=== PATIENT | male | born 1955 | race Caucasian/White ===

== ENCOUNTER → 2023-05-05 | Emergency (ER) | payer BC, OTHER ==
[~2023-05-05] MED LIST: FAMOTIDINE 20 MG/2 ML VIAL IV ONE; NA CHLORIDE 0.9% 1,000 ML ONE
--- OUTSIDE RECORDS SUMMARY | 2023-05-05 07:10 | XMS REPORT | Continuity of Care Document ---
Author Name Unknown Address [address] [facility] [address]. [address] [place] [address] [facility] Address [address] [facility]. [address] [place] [address] Care Team Providers Care Rural Service Engineer Name Role Phone YAZAN HILL Primary Care Physician UnavailBORIS Munguia Attending Clinician Unavailab GALE Santiago Attending Clinician UnaGALE Maher Attending Clinician Unav JAMES Casper Attending Clinician Unavailable JAMES QUIROS Attending Clinician Unavailable SRINIVASAN LOPEZ Attending Clinician UnavailRADHA Martinez Attending Clinician Radha Seals MD Attending Clinician YAZAN HILL Attending Clinician Unavailable Nima Villalobos RN Attending Clinician Unavail Yazan Rincon MD Attending Clinician [phone] SUMMER PABON Attending Clinician Unavail able Joann Hamilton DO Attending Clinician [phone] Mago Kruse MD Attending Clinician [phone] Summer Pabon MD Attending Clinician [phone] Doctor Unassigned, [place] Attending Clinician U KIRSTEN Elise Attending Clinician UnavailKirsten Espinal Attending Clinician [phone] Unknown, Attending Attending Clinician UnavailDAVE King Attending Clinician Unavailable Dave Tapia PA-C Attending Clinician [phone] DOV FATIMAHTOBY Attending Clinician Unavailable Brooks CAN WASHER, Reenu Attending Clinician [phone] Naveed CARVAJAL, Rena Attending Clinician [phone] RENA LUCIO Attending Clinician Unavailable Team, [facility] Maintenance Attending Clinicia n Unavailable Keara RN, Nadia Attending Clinician Unavailable Only, Ang Db Test Attending Clinician Unavailxavier Greer CAN WASHER, Yany Attending Clinician [phone] YANY GREER Attending Clinician Unavailable Omaghomi CAN WASHER, Omayemi Attending Clinician [phone] OMAGHOMI, OMAYEMI Attending Clinician Unavailxavier Cordova RN, Scar Ya Attending Clinician Unavaila ble Lab, Ang - Db Attending Clinician Unavailable Vaccine, Ang Db Uc Attending Clinician Unavailab cher Maradiaga MD, Boris Taylor Attending Clinician [phone] Only, Adc Test Attending Clinician Unavailable Pob, Adc Lab Main Attending Clinician UnavailJOHN Collazo Attending Clinician Unavailable Lab, Adc Fam Pob I Attending Clinician Unavailab le Provider, [facility] Attending Clinician Un available Aneumm SOUZA, Nichole Attending Clinician [phone] NICHOLE VÁSQUEZ Attending Clinician Unavailable BORIS MARADIAGA Admitting Clinician Unavailab SUMMER Tran Admitting Clinician Unavail Summer Oliveira MD Admitting Clinician [phone] Boris Maradiaga MD Admitting Clinician [phone] Payers Payer Name Policy Type Policy Number Effective Date Expirati on Date Source [facility] - OUT OF STATE [id number] 2015 00:00:00 MEDICARE OBS/INPT PART A ONLY [id number] 2019 00:00:00 2023 00:00:00 Problems Condition Name Condition Details Condition Category Status Onset Date Resolution Date Last Treatment Date Treating Clinician Comments Source Atrial fibrillati on with RVR Atrial fibrillati on with RVR Disease [facility] Hyperlipid emia with target LDL less than 100 Hyperlipid emia with target LDL less than 100 Disease Active 01-02 00:00: 00 [facility] Allergies, Adverse Reactions, Alerts Allergy Name Allergy Type Status Severity Reaction(s) Onset Date Inactive Date Treating Clinician Comments Source NO KNOWN ALLERGIE S Drug Class Active [facility] Social History Social Habit Start Date Stop Date Quantity Comments Source History SDOH Alcohol Frequency [facility] History SDOH Alcohol Std Drinks [facility] History SDOH Alcohol Binge [facility] Sexual orientation U [facility] Alcohol intake 2023-04-29 00:00:00 2023-04-29 00:00:00 Current drinker of alcohol (finding) [facility] History of Social function 2023-03-31 00:00:00 2023-03-31 00:00:00 [facility] Exposure to SARS-CoV-2 (event) 2022-08-08 00:00:00 2022-08-18 17:55:00 Not sure [facility] Cigarettes smoked current (pack per day) - Reported 2021-10-13 00:00:00 2021-10-13 00:00:00 [facility] Cigarette pack-years 2021-10-13 00:00:00 2021-10-13 00:00:00 [facility] Tobacco use and exposure 2021-10-13 00:00:00 2021-10-13 00:00:00 User of smokeless tobacco [facility] History of tobacco use 2021-10-06 00:00:00 Cigarette Smoker [facility] Alcohol Comment 2016-08-07 00:00:00 2016-08-07 00:00:00 occasionally [facility] Sex Assigned At 1955 00:00:00 1955 00:00:00 [facility] Smoking Status Start Date Stop Date Source Ex-smoker 2021-10-13 00:00:00 2021-10-13 00:00:00 U [facility] Current every day smoker 2015-08-01 00:00:00 [facility] Medications Ordered Medication Name Filled Medication Name Start Date Stop Date Current Medication? Ordering Clinician Indication Dosage Frequency Signature (SIG) Comments Components Source metoprolol tartrate 50 mg tablet - 17:29: 42 Yes 50mg Take 1 tablet by mouth every 8 (eight) hours as needed (HR over 90). [facility] metoprolol tartrate 50 mg tablet 2023-0 04-30 17:29: 42 Yes 50mg Take 1 tablet by mouth every 8 (eight) hours as needed (HR over 90). [facility] apixaban 5 mg tablet 2023-0 04-30 00:00: 00 Yes 1358 5mg Take 1 tablet by mouth in the morning and 1 tablet in the evening. Indication s: atrial fibrillati on [facility] metoprolol tartrate 25 mg tablet 2023-0 04-30 00:00: 00 Yes [id number] 25mg Take 1 tablet by mouth in the morning and 1 tablet in the evening. [facility] apixaban 5 mg tablet 2023-0 04-30 00:00: 00 Yes 1358 5mg Take 1 tablet by mouth in the morning and 1 tablet in the evening. Indication s: atrial fibrillati on [facility] metoprolol tartrate 25 mg tablet 2023-0 04-30 00:00: 00 Yes [id number] 25mg Take 1 tablet by mouth in the morning and 1 tablet in the evening. [facility] metoprolol tartrate 50 mg tablet 2023-0 18 15:24: 25 Yes 50mg Take 1 tablet by mouth every 8 (eight) hours as needed (HR over 90). [facility] levalbutero l 45 mcg/actuati on inhaler 2023-0 18 15:24: 25 Yes 1{puff} Inhale 1-2 Puffs every 4 (four) hours as needed for Wheezing. [facility] metoprolol tartrate 50 mg tablet 2023-0 18 15:24: 25 Yes 50mg Take 1 tablet by mouth every 8 (eight) hours as needed (HR over 90). [facility] levalbutero l 45 mcg/actuati on inhaler 2023-0 18 15:24: 25 Yes 1{puff} Inhale 1-2 Puffs every 4 (four) hours as needed for Wheezing. [facility] levalbutero l 45 mcg/actuati on inhaler 04-29 15:24: 25 Yes 1{puff} Inhale 1-2 Puffs every 4 (four) hours as needed for Wheezing. [facility] levalbutero l 45 mcg/actuati on inhaler 04-29 15:24: 25 Yes 1{puff} Inhale 1-2 Puffs every 4 (four) hours as needed for Wheezing. [facility] levalbutero l 45 mcg/actuati on inhaler 04-29 09:14: 17 Yes 1{puff} Inhale 1-2 Puffs every 4 (four) hours as needed for Wheezing. [facility] levalbutero l 45 mcg/actuati on inhaler 04-29 09:14: 17 Yes 1{puff} Inhale 1-2 Puffs every 4 (four) hours as needed for Wheezing. [facility] metoprolol tartrate 50 mg tablet 04-29 09:12: 57 Yes 50mg Take 1 tablet by mouth every 8 (eight) hours as needed (HR over 90). [facility] metoprolol tartrate 50 mg tablet 04-29 09:12: 57 Yes 50mg Take 1 tablet by mouth every 8 (eight) hours as needed (HR over 90). [facility] metoprolol tartrate 25 mg tablet 04-29 00:00: 00 Yes [id number] 25mg Take 1 tablet by mouth in the morning and 1 tablet in the evening. [facility] metoprolol tartrate 25 mg tablet 04-29 00:00: 00 Yes [id number] 25mg Take 1 tablet by mouth in the morning and 1 tablet in the evening. [facility] metoprolol tartrate 25 mg tablet 04-29 00:00: 00 04-30 00:00 :00 No [id number] 25mg Take 1 tablet by mouth in the morning and 1 tablet in the evening. [facility] metoprolol tartrate (LOPRESSOR) tablet 50 mg 04-17 04:00: 00 Yes 50mg 50 mg, Oral, Q8H, First dose (after last modificati on) on Wed04/16/23 at 2200, Until Discontinu ed, Routine [facility] atorvastati n (LIPITOR) tablet 10 mg 04-17 03:00: 00 Yes 10mg 10 mg, Oral, QHS, First dose on Wed04/16/23 at 2100, Until Discontinu ed, Routine [facility] apixaban 5 mg tablet 04-17 00:00: 00 Yes 1358 5mg Take 1 tablet by mouth in the morning and 1 tablet in the evening. Indication s: atrial fibrillati on [facility] apixaban 5 mg tablet 04-17 00:00: 00 Yes 1358 5mg Take 1 tablet by mouth in the morning and 1 tablet in the evening. Indication s: atrial fibrillati on [facility] apixaban 5 mg tablet 04-17 00:00: 00 Yes 1358 5mg Take 1 tablet by mouth in the morning and 1 tablet in the evening. Indication s: atrial fibrillati on [facility] apixaban 5 mg tablet 04-17 00:00: 00 Yes 1358 5mg Take 1 tablet by mouth in the morning and 1 tablet in the evening. Indication s: atrial fibrillati on [facility] dextrometho rphan-guaif enesin 10-100 mg/5 mL solution 04-17 00:00: 00 Yes [id number] 5mL Take 5 mL by mouth every 6 (six) hours as needed for Cough. [facility] apixaban 5 mg tablet 04-17 00:00: 00 Yes 1358 5mg Take 1 tablet by mouth in the morning and 1 tablet in the evening. Indication s: atrial fibrillati on [facility] dextrometho rphan-guaif enesin 10-100 mg/5 mL solution 04-17 00:00: 00 Yes [id number] 5mL Take 5 mL by mouth every 6 (six) hours as needed for Cough. [facility] apixaban 5 mg tablet 04-17 00:00: 00 Yes 1358 5mg Take 1 tablet by mouth in the morning and 1 tablet in the evening. Indication s: atrial fibrillati on [facility] dextrometho rphan-guf enesin 10-100 mg/5 mL solution - 00:00: 00 Yes [id number] 5mL Take 5 mL by mouth every 6 (six) hours as needed for Cough. [facility] apixaban 5 mg tablet 04-17 00:00: 00 Yes 1358 5mg Take 1 tablet by mouth in the morning and 1 tablet in the evening. Indication s: atrial fibrillati on [facility] dextrometho rphan-guf enesin 10-100 mg/5 mL solution 04-17 00:00: 00 Yes [id number] 5mL Take 5 mL by mouth every 6 (six) hours as needed for Cough. [facility] apixaban 5 mg tablet 04-17 00:00: 00 Yes 1358 5mg Take 1 tablet by mouth in the morning and 1 tablet in the evening. Indication s: atrial fibrillati on [facility] metoprolol tartrate 25 mg tablet 04-17 00:00: 00 10-14 04:59 :00 Yes [id number] 25mg Take 1 tablet by mouth in the morning and 1 tablet in the evening. Do all this for 180 days. [facility] metoprolol tartrate 25 mg tablet 04-17 00:00: 00 10-14 04:59 :00 Yes [id number] 25mg Take 1 tablet by mouth in the morning and 1 tablet in the evening. Do all this for 180 days. [facility] metoprolol tartrate 25 mg tablet 04-17 00:00: 00 10-14 04:59 :00 Yes [id number] 25mg Take 1 tablet by mouth in the morning and 1 tablet in the evening. Do all this for 180 days. [facility] metoprolol tartrate 25 mg tablet 04-17 00:00: 10-14 04:59 :00 Yes [id number] 25mg Take 1 tablet by mouth in the morning and 1 tablet in the evening. Do all this for 180 days. [facility] metoprolol tartrate 25 mg tablet 04-17 00:00: 00 10-14 04:59 :00 Yes [id number] 25mg Take 1 tablet by mouth in the morning and 1 tablet in the evening. Do all this for 180 days. [facility] metoprolol tartrate 25 mg tablet 04-17 00:00: 00 10-14 04:59 :00 Yes [id number] 25mg Take 1 tablet by mouth in the morning and 1 tablet in the evening. Do all this for 180 days. [facility] apixaban 5 mg tablet 04-17 00:00: 00 04-30 00:00 :00 No 1358 5mg Take 1 tablet by mouth in the morning and 1 tablet in the evening. Indication s: atrial fibrillati on [facility] dextrometho dimitry-randallf enesin 10-100 mg/5 mL solution 04-17 00:00: 00 04-29 00:00 :00 No [id number] 5mL Take 5 mL by mouth every 6 (six) hours as needed for Cough. [facility] metoprolol tartrate 50 mg tablet 04-17 00:00: 00 04-29 00:00 :00 No 50mg Take 1 tablet by mouth every 8 (eight) hours as needed. [facility] metoprolol tartrate 25 mg tablet 04-17 00:00: 00 04-29 00:00 :00 No [id number] 25mg Take 1 tablet by mouth in the morning and 1 tablet in the evening. Do all this for 180 days. [facility] metoprolol tartrate 25 mg tablet 04-17 00:00: 00 04-29 00:00 :00 No [id number] 25mg Take 1 tablet by mouth in the morning and 1 tablet in the evening. Do all this for 180 days. [facility] david mckeon enesin 10-100 mg/5 mL solution 04-17 00:00: 00 04-29 00:00 :00 No [id number] 5mL Take 5 mL by mouth every 6 (six) hours as needed for Cough. [facility] metoprolol tartrate 50 mg tablet 04-17 00:00: 00 04-29 00:00 :00 No 50mg Take 1 tablet by mouth every 8 (eight) hours as needed. [facility] metoprolol tartrate 50 mg tablet 04-17 00:00: 00 04-17 00:00 :00 No [id number] 50mg Take 1 tablet by mouth every 8 (eight) hours. [facility] metoprolol tartrate 50 mg tablet 04-17 00:00: 04-17 00:00 :00 No [id number] 25mg Take 0.5 tablets by mouth in the morning and 0.5 tablets in the evening. [facility] apixaban (ELIQUIS) tablet 5 mg 04-16 20:30: 00 Yes 5mg 5 mg, Oral, BID, First dose on Wed04/16/23 at 1430, Until Discontinu ed, Routine
Indicatio ns: Non-Valvul ar Atrial Fibrillati on [facility] metoprolol (LOPRESSOR) injection 5 mg 04-16 19:00: 00 04-16 18:16 :00 No 5mg 5 mg, Intravenou s, ONCE, 1 dose, On Wed04/16/23 at 1300, Routine [facility] sulfur hexafluorid e microsphr (LUMASON) injection 5 mL 04-16 18:15: 00 04-16 18:15 :00 No [id number] 5mL 5 mL, Intravenou s, ONCE, 1 dose, On Wed04/16/23 at 1215, Routine
seafood team member approving Restricted medication : CARLYN SEGURA [facility] metoprolol tartrate (LOPRESSOR) tablet 25 mg 04-16 18:00: 00 04-16 21:35 :15 No 25mg 25 mg, Oral, Q8H, First dose (after last modificati on) on Wed04/16/23 at 1200, Until Discontinu ed, Routine [facility] metoprolol tartrate (LOPRESSOR) tablet 12.5 mg 04-16 17:15: 00 04-16 17:48 :17 No 12.5mg 12.5 mg, Oral, BID, First dose on Wed04/16/23 at 1115, Until Discontinu ed, Routine [facility] sennosides- docusate sodium (SENOKOT-S) 8.6-50 mg per tablet 1 tablet 04-16 15:00: 00 Yes 1{tbl} 1 tablet, Oral, DAILY, First dose on Wed04/16/23 at 0900, Until Discontinu ed, Routine [facility] levalbutero l (XOPENEX) nebulizer solution 0.63 mg 04-16 14:00: 00 Yes .63mg 0.63 mg, Inhalation , TID, First dose on Wed04/16/23 at 0800, Until Discontinu ed, Routine [facility] HEPARIN SODIUM (PORCINE) 1,000 UNIT/ML BOLUS ACS ORDER SET 04-16 11:15: 00 04-16 13:17 :00 No 4000U 4,000 Units, IV Push, ONCE, 1 dose, On Wed04/16/23 at 0515, JONATHAN [facility] heparin 25,000 Units/250 mL (Premixed Bag) in 0.45 % NS 04-16 11:01: 13 04-16 20:18 :08 No 0U/h 0-2,150 Units/hr (0-21.5 mL/hr), IV Infusion, TITRATE, Parameters in Admin. Instr., Starting on Wed04/16/23 at 0501
In itiate dosing:&nb sp; & nbsp;&nbsp ; -Patient 83 kg or under: 850 Units/hr (Calculate d dose at 12 units/kg/h r) &n bsp; &nbs p; -Patient over 83 k,000 units/hr&n bsp;DO NOT Exceed the MAXIMUM 1,000 units/hr for initiation of heparin drip.&nbsp ; CAU TION - If LMWH given in ER, AVOID bolus and start next dose/drip 12 hrs after ER dosage.&nb sp; M ust program rate using programmab le infusion pump.&nbsp ; Smitha ck with the ordering provider first prior to any administra tion should the patient be on existing/a dditional anticoagul ant therapy. Rang e, Dosing and Testing: &nbs p;FOR [facility], [facility], AND [facility] ONLY &nbs p; - aPTT < 35: & nbsp;Bolus 5000 units, increase rate 300 units/hr&n bsp; - aPTT 35-44:&nbs p; Harjit starla 3000 units, increase rate 200 units/hr&n bsp; - aPTT 45-54:&nbs p; In crease rate 100 units/hr&n bsp; - aPTT 55-85:&nbs p; NO CHANGE&nbs p; - aPTT 86-95:&nbs p; De crease rate 100 units/hr&n bsp; - aPTT 96-120:&nb sp; H old 30 minutes, decrease rate 150 units/hr&n bsp; - aPTT > 120: Hold 60 minutes, decrease rate 200 units/hr&n bsp; Check aPTT 6 hours after initiation , then Q6H after every change, aPTT Q12H once therapeuti c levels are reached.&n bsp; &nbs p; __ &n bsp;FOR [facility] ONLY - aPTT < 40: & nbsp;Bolus 5000 units, increase rate 300 units/hr&n bsp; - aPTT 40-49:&nbs p; Harjit starla 3000 units, increase rate 200 units/hr&n bsp; - aPTT 50-59:&nbs p; In crease rate 100 units/hr&n bsp; - aPTT 60-85:&nbs p; NO CHANGE&nbs p; - aPTT 86-95:&nbs p; De crease rate 100 units/hr&n bsp; - aPTT 96-120:&nb sp; H old 30 minutes, decrease rate 150 units/hr&n bsp; - aPTT > 120: Hold 60 minutes, decrease rate 200 units/hr&n bsp; Check aPTT 6 hours after initiation , then Q6H after every change, aPTT Q12H once therapeuti c levels are reached.&n bsp; DO NOT ADJUST INITIAL BOLUS OR INITIAL INFUSION RATE.
[facility]rometho rphan-guaif enesin (ROBITUSSIN DM) 10-100 mg/5 mL solution 5 mL 04-16 07:34: 20 Yes 5mL 5 mL, Oral, Q6HPRN, Starting on Wed04/16/23 at 0134, Until Discontinu ed, Routine, Cough [facility] acetaminoph en (TYLENOL) tablet 650 mg 04-16 07:22: 44 Yes 650mg 650 mg, Oral, Q6HPRN, Starting on Wed04/16/23 at 0122, Until Discontinu ed, Routine, Pain (scale 1-3) [facility] NaCl 0.9% (NS) bolus infusion 500 mL 04-16 01:45: 00 04-16 02:25 :00 No 500mL at 999 mL/hr, 500 mL, IV Infusion, ONCE, 1 dose, On Gretchen 04/15/23 at 1945, STAT [facility] diltiazem (CARDIZEM IV) 125 mg in D5W infusion 04-16 01:36: 57 04-16 07:45 :36 No 2.5mg/h 2.5-15 mg/hr (2.5-15 mL/hr), IV Infusion, TITRATE, HR <105 and SBP >100, Starting on Wed04/15/23 at 1936
In itiate infusion at 2.5 mg/hr. Titrate by 2.5 mg/hr every 5 minutes to 15 minutes as needed to achieve and maintain goal heart rate. Maximum dose = 15 mg/hr. If goal not maintained at maximum allowed dose, contact prescriber .
[facility] diltiazem (CARDIZEM IV) injection 15 mg 04-15 21:15: 00 04-15 21:18 :00 No 15mg 15 mg, IV Push, ONCE, 1 dose, On Wed04/15/23 at 1515, STAT [facility] cefUROXime 500 mg tablet 04-13 00:00: 00 Yes [id number] 500mg Take 1 tablet by mouth in the morning and 1 tablet in the evening. [facility] cefUROXime 500 mg tablet 04-13 00:00: 00 04-17 00:00 :00 No [id number] 500mg Take 1 tablet by mouth in the morning and 1 tablet in the evening. [facility] cefUROXime 500 mg tablet 2022-04 2-20 00:00: 00 Yes [id number] 500mg Take 1 tablet by mouth in the morning and 1 tablet in the evening. [facility] cefUROXime 500 mg tablet 2022-04 2-20 00:00: 00 Yes [id number] 500mg Take 1 tablet by mouth in the morning and 1 tablet in the evening. [facility] cefUROXime 500 mg tablet 2022-04 2-20 00:00: 00 04-13 00:00 :00 No [id number] 500mg Take 1 tablet by mouth in the morning and 1 tablet in the evening. [facility] codeine-gua ifenesin 10-100 mg/5 mL oral solution 2022-04 00:00: 00 04-08 05:59 :00 Yes 10mL Take 10 mL by mouth every 6 (six) hours as needed for Cough for up to 7 days. Indication s: cough [facility] codeine-gua ifenesin 10-100 mg/5 mL oral solution 2022-04 00:00: 00 04-08 05:59 :00 Yes 10mL Take 10 mL by mouth every 6 (six) hours as needed for Cough for up to 7 days. Indication s: cough [facility] benzonatate 200 mg capsule 2022-04 00:00: 00 04-03 05:59 :00 Yes [id number] 200mg Take 1 capsule by mouth 3 (three) times daily as needed for Cough for up to 10 days. [facility] benzonatate 200 mg capsule 2022-04 00:00: 00 04-03 05:59 :00 Yes [id number] 200mg Take 1 capsule by mouth 3 (three) times daily as needed for Cough for up to 10 days. [facility] benzonatate 200 mg capsule 2022-04 00:00: 00 04-03 05:59 :00 Yes [id number] 200mg Take 1 capsule by mouth 3 (three) times daily as needed for Cough for up to 10 days. [facility] erythromyci n 5 mg/gram (0.5 %) ophthalmic ointment 7-04 00:00: 00 Yes [id number] 9102 .5[in_u s] Place 0.5 Inches in left eye 4 (four) times daily. [facility] erythromyci n 5 mg/gram (0.5 %) ophthalmic ointment 10-13 00:00: 00 Yes [id number] 9102 .5[in_u s] Place 0.5 Inches in left eye 4 (four) times daily. [facility] erythromyci n 5 mg/gram (0.5 %) ophthalmic ointment 10-13 00:00: 00 Yes [id number] 9102 .5[in_u s] Place 0.5 Inches in left eye 4 (four) times daily. [facility] erythromyci n 5 mg/gram (0.5 %) ophthalmic ointment 10-13 00:00: 00 Yes [id number] 9102 .5[in_u s] Place 0.5 Inches in left eye 4 (four) times daily. [facility] erythromyci n 5 mg/gram (0.5 %) ophthalmic ointment 10-13 00:00: 00 Yes [id number] 9102 .5[in_u s] Place 0.5 Inches in left eye 4 (four) times daily. [facility] erythromyci n 5 mg/gram (0.5 %) ophthalmic ointment 10-13 00:00: 00 Yes [id number] 9102 .5[in_u s] Place 0.5 Inches in left eye 4 (four) times daily. [facility] erythromyci n 5 mg/gram (0.5 %) ophthalmic ointment 10-13 00:00: 00 04-17 00:00 :00 No [id number] 9102 .5[in_u s] Place 0.5 Inches in left eye 4 (four) times daily. [facility] ATORVASTATI N 10 mg tablet 09-21 00:00: 00 Yes [id number] TAKE 1 TABLET BY MOUTH EVERYDAY AT BEDTIME [facility] ATORVASTATI N 10 mg tablet 09-21 00:00: 00 Yes [id number] TAKE 1 TABLET BY MOUTH EVERYDAY AT BEDTIME [facility] ATORVASTATI N 10 mg tablet 3-0 -12 00:00: 00 Yes [id number] TAKE 1 TABLET BY MOUTH EVERYDAY AT BEDTIME [facility] ATORVASTATI N 10 mg tablet 3-0 -12 00:00: 00 Yes [id number] TAKE 1 TABLET BY MOUTH EVERYDAY AT BEDTIME [facility] ATORVASTATI N 10 mg tablet 2022-0 -12 00:00: 00 Yes [id number] TAKE 1 TABLET BY MOUTH EVERYDAY AT BEDTIME [facility] ATORVASTATI N 10 mg tablet 3-0 -12 00:00: 00 Yes [id number] TAKE 1 TABLET BY MOUTH EVERYDAY AT BEDTIME [facility] ATORVASTATI N 10 mg tablet 3-0 -12 00:00: 00 Yes [id number] TAKE 1 TABLET BY MOUTH EVERYDAY AT BEDTIME [facility] ATORVASTATI N 10 mg tablet 2022-0 12 00:00: 00 Yes [id number] TAKE 1 TABLET BY MOUTH EVERYDAY AT BEDTIME [facility] ATORVASTATI N 10 mg tablet 3-0 12 00:00: 00 Yes [id number] TAKE 1 TABLET BY MOUTH EVERYDAY AT BEDTIME [facility] ATORVASTATI N 10 mg tablet 2022-0 12 00:00: 00 Yes [id number] TAKE 1 TABLET BY MOUTH EVERYDAY AT BEDTIME [facility] ATORVASTATI N 10 mg tablet 2022-0 -12 00:00: 00 Yes [id number] TAKE 1 TABLET BY MOUTH EVERYDAY AT BEDTIME [facility] ATORVASTATI N 10 mg tablet 3-0 -12 00:00: 00 Yes [id number] TAKE 1 TABLET BY MOUTH EVERYDAY AT BEDTIME [facility] ATORVASTATI N 10 mg tablet 3-0 -12 00:00: 00 Yes [id number] TAKE 1 TABLET BY MOUTH EVERYDAY AT BEDTIME [facility] ATORVASTATI N 10 mg tablet 3-0 -12 00:00: 00 Yes [id number] TAKE 1 TABLET BY MOUTH EVERYDAY AT BEDTIME [facility] ATORVASTATI N 10 mg tablet 09-21 00:00: 00 Yes [id number] TAKE 1 TABLET BY MOUTH EVERYDAY AT BEDTIME [facility] ATORVASTATI N 10 mg tablet 09-21 00:00: 00 Yes [id number] TAKE 1 TABLET BY MOUTH EVERYDAY AT BEDTIME [facility] ATORVASTATI N 10 mg tablet 09-21 00:00: 00 Yes [id number] TAKE 1 TABLET BY MOUTH EVERYDAY AT BEDTIME [facility] ATORVASTATI N 10 mg tablet 09-21 00:00: 00 Yes [id number] TAKE 1 TABLET BY MOUTH EVERYDAY AT BEDTIME [facility] amoxicillin 500 mg capsule 08-18 00:00: 00 08-29 04:59 :00 No [id number] 500mg Take 1 capsule by mouth in the morning and 1 capsule in the evening. Do all this for 10 days. [facility] levalbutero l 45 mcg/actuati on inhaler 07-02 00:00: 00 Yes [id number] 1{puff} Inhale 1-2 Puffs every 6 (six) hours as needed for Wheezing or Bronchospa sm. [facility] levalbutero l 45 mcg/actuati on inhaler 07-02 00:00: 00 Yes [id number] 1{puff} Inhale 1-2 Puffs every 6 (six) hours as needed for Wheezing or Bronchospa sm. [facility] levalbutero l 45 mcg/actuati on inhaler 07-02 00:00: 00 Yes [id number] 1{puff} Inhale 1-2 Puffs every 6 (six) hours as needed for Wheezing or Bronchospa sm. [facility] levalbutero l 45 mcg/actuati on inhaler 07-02 00:00: 00 Yes [id number] 1{puff} Inhale 1-2 Puffs every 6 (six) hours as needed for Wheezing or Bronchospa sm. [facility] levalbutero l 45 mcg/actuati on inhaler 07-02 00:00: 00 Yes [id number] 1{puff} Inhale 1-2 Puffs every 6 (six) hours as needed for Wheezing or Bronchospa sm. [facility] levalbutero l 45 mcg/actuati on inhaler 07-02 00:00: 00 Yes [id number] 1{puff} Inhale 1-2 Puffs every 6 (six) hours as needed for Wheezing or Bronchospa sm. [facility] levalbutero l 45 mcg/actuati on inhaler 07-02 00:00: 00 Yes [id number] 1{puff} Inhale 1-2 Puffs every 6 (six) hours as needed for Wheezing or Bronchospa sm. [facility] levalbutero l 45 mcg/actuati on inhaler 07-02 00:00: 00 Yes [id number] 1{puff} Inhale 1-2 Puffs every 6 (six) hours as needed for Wheezing or Bronchospa sm. [facility] levalbutero l 45 mcg/actuati on inhaler 07-02 00:00: 00 Yes [id number] 1{puff} Inhale 1-2 Puffs every 6 (six) hours as needed for Wheezing or Bronchospa sm. [facility] levalbutero l 45 mcg/actuati on inhaler 07-02 00:00: 00 Yes [id number] 1{puff} Inhale 1-2 Puffs every 6 (six) hours as needed for Wheezing or Bronchospa sm. [facility] levalbutero l 45 mcg/actuati on inhaler 07-02 00:00: 00 Yes [id number] 1{puff} Inhale 1-2 Puffs every 6 (six) hours as needed for Wheezing or Bronchospa sm. [facility] levalbutero l 45 mcg/actuati on inhaler 07-02 00:00: 00 Yes [id number] 1{puff} Inhale 1-2 Puffs every 6 (six) hours as needed for Wheezing or Bronchospa sm. [facility] levalbutero l 45 mcg/actuati on inhaler 07-02 00:00: 00 Yes [id number] 1{puff} Inhale 1-2 Puffs every 6 (six) hours as needed for Wheezing or Bronchospa sm. [facility] levalbutero l 45 mcg/actuati on inhaler 07-02 00:00: 00 Yes [id number] 1{puff} Inhale 1-2 Puffs every 6 (six) hours as needed for Wheezing or Bronchospa sm. [facility] levalbutero l 45 mcg/actuati on inhaler 07-02 00:00: 00 04-29 00:00 :00 No [id number] 1{puff} Inhale 1-2 Puffs every 6 (six) hours as needed for Wheezing or Bronchospa sm. [facility] levalbutero l 45 mcg/actuati on inhaler 07-02 00:00: 00 04-29 00:00 :00 No [id number] 1{puff} Inhale 1-2 Puffs every 6 (six) hours as needed for Wheezing or Bronchospa sm. [facility] dexamethaso ne (DECADRON) injection 10 mg 07-01 20:56: 00 07-01 20:57 :00 No [id number] 10mg [facility] dexamethaso ne (DECADRON) injection 10 mg 07-01 20:56: 00 07-01 20:57 :00 No [id number] 10mg 10 mg, Intramuscu lar, ONCE, 1 dose, On Wed07/01/22 at 1600, Routine [facility] albuterol 90 mcg/actuati on inhaler 07-01 00:00: 00 07-12 04:59 :00 No [id number] 2{puff} Inhale 2 Puffs every 6 (six) hours as needed for Wheezing for up to 10 days. [facility] codeine-gua ifenesin 10-100 mg/5 mL oral solution 07-01 00:00: 00 07-07 04:59 :00 No 10mL Take 10 mL by mouth every 6 (six) hours as needed for Cough for up to 5 days. Indication s: cough [facility] codeine-gua ifenesin 10-100 mg/5 mL oral solution 07-01 00:00: 00 07-07 04:59 :00 No 10mL Take 10 mL by mouth every 6 (six) hours as needed for Cough for up to 5 days. Indication s: cough [facility] albuterol 90 mcg/actuati on inhaler 07-01 00:00: 00 07-02 00:00 :00 No [id number] 2{puff} Inhale 2 Puffs every 6 (six) hours as needed for Wheezing for up to 10 days. [facility] polymyxin B sulf-trimet hoprim 10,000 unit- 1 mg/mL ophthalmic drops 1- 00:00: 00 04-21 05:59 :00 No [id number] 1[drp] Place 1 Drop in left eye 4 (four) times daily for 7 days. [facility] nirmatrelvi r-ritonavir (PAXLOVID, EUA,) 150 mg x 2- 100 mg tablet 10-14 00:00: 00 Yes [id number] 3{tbl} Take 3 tablets by mouth 2 (two) times daily. [facility] nirmatrelvi r-ritonavir (PAXLOVID, EUA,) 150 mg x 2- 100 mg tablet 10-14 00:00: 00 Yes [id number] 3{tbl} Take 3 tablets by mouth 2 (two) times daily. [facility] nirmatrelvi r-ritonavir (PAXLOVID, EUA,) 150 mg x 2- 100 mg tablet 10-14 00:00: 00 Yes [id number] 3{tbl} Take 3 tablets by mouth 2 (two) times daily. [facility] nirmatrelvi r-ritonavir (PAXLOVID, EUA,) 150 mg x 2- 100 mg tablet 0 7-05 00:00: 00 Yes [id number] 3{tbl} Take 3 tablets by mouth 2 (two) times daily. [facility] nirmatrelvi r-ritonavir (PAXLOVID, EUA,) 150 mg x 2- 100 mg tablet 0 7-05 00:00: 00 Yes [id number] 3{tbl} Take 3 tablets by mouth 2 (two) times daily. [facility] nirmatrelvi r-ritonavir (PAXLOVID, EUA,) 150 mg x 2- 100 mg tablet 0 7-05 00:00: 00 Yes [id number] 3{tbl} Take 3 tablets by mouth 2 (two) times daily. [facility] nirmatrelvi r-ritonavir (PAXLOVID, EUA,) 150 mg x 2- 100 mg tablet 0 7-05 00:00: 00 Yes [id number] 3{tbl} Take 3 tablets by mouth 2 (two) times daily. [facility] nirmatrelvi r-ritonavir (PAXLOVID, EUA,) 150 mg x 2- 100 mg tablet 0 -05 00:00: 00 Yes [id number] 3{tbl} Take 3 tablets by mouth 2 (two) times daily. [facility] nirmatrelvi r-ritonavir (PAXLOVID, EUA,) 150 mg x 2- 100 mg tablet 0 -05 00:00: 00 Yes [id number] 3{tbl} Take 3 tablets by mouth 2 (two) times daily. [facility] nirmatrelvi r-ritonavir (PAXLOVID, EUA,) 150 mg x 2- 100 mg tablet - 00:00: 00 09-21 00:00 :00 No [id number] 3{tbl} Take 3 tablets by mouth 2 (two) times daily. [facility] benzonatate 200 mg capsule 10-13 00:00: 00 10-24 04:59 :00 No [id number] 200mg Take 1 capsule by mouth 3 (three) times daily as needed for Cough for up to 10 days. [facility] benzonatate 200 mg capsule 10-13 00:00: 00 10-24 04:59 :00 No [id number] 200mg Take 1 capsule by mouth 3 (three) times daily as needed for Cough for up to 10 days. [facility] benzonatate 200 mg capsule 10-13 00:00: 00 10-24 04:59 :00 No [id number] 200mg Take 1 capsule by mouth 3 (three) times daily as needed for Cough for up to 10 days. [facility] benzonatate 200 mg capsule 10-13 00:00: 00 10-24 04:59 :00 No [id number] 200mg Take 1 capsule by mouth 3 (three) times daily as needed for Cough for up to 10 days. [facility] benzonatate 200 mg capsule 10-13 00:00: 00 10-24 04:59 :00 No [id number] 200mg Take 1 capsule by mouth 3 (three) times daily as needed for Cough for up to 10 days. [facility] atorvastati n 10 mg tablet 09-25 00:00: 00 Yes [id number] 10mg Take 1 tablet by mouth at bedtime. [facility] diclofenac 50 mg EC tablet 16 00:00: 00 Yes [id number] 50mg Take 1 tablet by mouth 3 (three) times daily with meals. [facility] atorvastati n 10 mg tablet 0 16 00:00: 00 Yes [id number] 10mg Take 1 tablet by mouth at bedtime. [facility] diclofenac 50 mg EC tablet 16 00:00: 00 Yes [id number] 50mg Take 1 tablet by mouth 3 (three) times daily with meals. [facility] atorvastati n 10 mg tablet 0 16 00:00: 00 Yes [id number] 10mg Take 1 tablet by mouth at bedtime. [facility] diclofenac 50 mg EC tablet 2-0 6-16 00:00: 00 Yes [id number] 50mg Take 1 tablet by mouth 3 (three) times daily with meals. [facility] atorvastati n 10 mg tablet 2-0 6-16 00:00: 00 Yes [id number] 10mg Take 1 tablet by mouth at bedtime. [facility] diclofenac 50 mg EC tablet 2-0 6-16 00:00: 00 Yes [id number] 50mg Take 1 tablet by mouth 3 (three) times daily with meals. [facility] atorvastati n 10 mg tablet 2021-0 6-16 00:00: 00 Yes [id number] 10mg Take 1 tablet by mouth at bedtime. [facility] diclofenac 50 mg EC tablet 2-0 6-16 00:00: 00 Yes [id number] 50mg Take 1 tablet by mouth 3 (three) times daily with meals. [facility] atorvastati n 10 mg tablet 2-0 -16 00:00: 00 Yes [id number] 10mg Take 1 tablet by mouth at bedtime. [facility] diclofenac 50 mg EC tablet 2-0 6-16 00:00: 00 Yes [id number] 50mg Take 1 tablet by mouth 3 (three) times daily with meals. [facility] atorvastati n 10 mg tablet 2-0 6-16 00:00: 00 Yes [id number] 10mg Take 1 tablet by mouth at bedtime. [facility] diclofenac 50 mg EC tablet 2-0 6-16 00:00: 00 Yes [id number] 50mg Take 1 tablet by mouth 3 (three) times daily with meals. [facility] atorvastati n 10 mg tablet 2-0 6-16 00:00: 00 Yes [id number] 10mg Take 1 tablet by mouth at bedtime. [facility] diclofenac 50 mg EC tablet 2-0 6-16 00:00: 00 Yes [id number] 50mg Take 1 tablet by mouth 3 (three) times daily with meals. [facility] atorvastati n 10 mg tablet 2-0 6-16 00:00: 00 Yes [id number] 10mg Take 1 tablet by mouth at bedtime. [facility] diclofenac 50 mg EC tablet 2-0 6-16 00:00: 00 Yes [id number] 50mg Take 1 tablet by mouth 3 (three) times daily with meals. [facility] atorvastati n 10 mg tablet 2-0 6-16 00:00: 00 Yes [id number] 10mg Take 1 tablet by mouth at bedtime. [facility] diclofenac 50 mg EC tablet 2-0 6-16 00:00: 00 Yes [id number] 50mg Take 1 tablet by mouth 3 (three) times daily with meals. [facility] atorvastati n 10 mg tablet 2-0 6-16 00:00: 00 Yes [id number] 10mg Take 1 tablet by mouth at bedtime. [facility] diclofenac 50 mg EC tablet 2-0 6-16 00:00: 00 Yes [id number] 50mg Take 1 tablet by mouth 3 (three) times daily with meals. [facility] atorvastati n 10 mg tablet 2-0 6-16 00:00: 00 Yes [id number] 10mg Take 1 tablet by mouth at bedtime. [facility] diclofenac 50 mg EC tablet 2-0 6-16 00:00: 00 Yes [id number] 9109 50mg Take 1 tablet by mouth 3 (three) times daily with meals. [facility] atorvastati n 10 mg tablet 2-0 6-16 00:00: 00 Yes [id number] 10mg Take 1 tablet by mouth at bedtime. [facility] diclofenac 50 mg EC tablet 2-0 6-16 00:00: 00 Yes [id number] 50mg Take 1 tablet by mouth 3 (three) times daily with meals. [facility] diclofenac 50 mg EC tablet 2-0 6-16 00:00: 00 Yes [id number] 50mg Take 1 tablet by mouth 3 (three) times daily with meals. [facility] diclofenac 50 mg EC tablet 2-0 6-16 00:00: 00 Yes [id number] 50mg Take 1 tablet by mouth 3 (three) times daily with meals. [facility] diclofenac 50 mg EC tablet 2-0 6-16 00:00: 00 Yes [id number] 9109 50mg Take 1 tablet by mouth 3 (three) times daily with meals. [facility] diclofenac 50 mg EC tablet 2-0 6-16 00:00: 00 Yes [id number] [id number] 50mg Take 1 tablet by mouth 3 (three) times daily with meals. [facility] diclofenac 50 mg EC tablet 2021-0 6-16 00:00: 00 Yes [id number] 50mg Take 1 tablet by mouth 3 (three) times daily with meals. [facility] diclofenac 50 mg EC tablet 2-0 6-16 00:00: 00 Yes [id number] 50mg Take 1 tablet by mouth 3 (three) times daily with meals. [facility] diclofenac 50 mg EC tablet 2021-0 6-16 00:00: 00 Yes [id number] 50mg Take 1 tablet by mouth 3 (three) times daily with meals. [facility] diclofenac 50 mg EC tablet 2021-0 6-16 00:00: 00 Yes [id number] [id number] 50mg Take 1 tablet by mouth 3 (three) times daily with meals. [facility] diclofenac 50 mg EC tablet 2021-0 6-16 00:00: 00 04-17 00:00 :00 No [id number] 50mg Take 1 tablet by mouth 3 (three) times daily with meals. [facility] atorvastati n 10 mg tablet 2021-0 6-16 00:00: 00 09-21 00:00 :00 No [id number] 10mg Take 1 tablet by mouth at bedtime. [facility] ATORVASTATI N 10 mg tablet 2021-0 1-26 00:00: 00 09-25 00:00 :00 No [id number] TAKE 1 TABLET BY MOUTH EVERYDAY AT [facility] Immunizations Ordered Immunization Name Filled Immunization Name Date Status Comments Source SARS-COV-2 COVID-19 PFIZER VACCINE 2021-02-22 00:00:00 [facility] SARS-COV-2 COVID-19 PFIZER VACCINE 2021-02-22 00:00:00 Completed [facility] SARS-COV-2 COVID-19 PFIZER VACCINE 2021-02-22 00:00:00 Completed [facility] SARS-COV-2 COVID-19 PFIZER VACCINE 2021-02-22 00:00:00 Completed [facility] SARS-COV-2 COVID-19 PFIZER VACCINE 2021-02-22 00:00:00 Completed [facility] SARS-COV-2 COVID-19 PFIZER VACCINE 2021-02-22 00:00:00 Completed [facility] SARS-COV-2 COVID-19 PFIZER VACCINE 2021-02-22 00:00:00 Completed [facility] SARS-COV-2 COVID-19 PFIZER VACCINE 2021-02-22 00:00:00 Completed [facility] SARS-COV-2 COVID-19 PFIZER VACCINE 2021-02-22 00:00:00 Completed [facility] SARS-COV-2 COVID-19 PFIZER VACCINE 2021-02-22 00:00:00 Completed [facility] SARS-COV-2 COVID-19 PFIZER VACCINE 2021-02-22 00:00:00 Completed [facility] SARS-COV-2 COVID-19 PFIZER VACCINE 2021-02-22 00:00:00 Completed [facility] SARS-COV-2 COVID-19 PFIZER VACCINE 2021-02-22 00:00:00 Completed [facility] SARS-COV-2 COVID-19 PFIZER VACCINE 2021-02-22 00:00:00 Completed [facility] SARS-COV-2 COVID-19 PFIZER VACCINE 2021-02-22 00:00:00 Completed [facility] SARS-COV-2 COVID-19 PFIZER VACCINE 2021-02-22 00:00:00 Completed [facility] SARS-COV-2 COVID-19 PFIZER VACCINE 2021-02-22 00:00:00 Completed [facility] SARS-COV-2 COVID-19 PFIZER VACCINE 2020-06-29 00:00:00 Completed [facility] SARS-COV-2 COVID-19 PFIZER VACCINE 2020-06-29 00:00:00 Completed [facility] SARS-COV-2 COVID-19 PFIZER VACCINE 2020-06-29 00:00:00 Completed [facility] SARS-COV-2 COVID-19 PFIZER VACCINE 2020-06-29 00:00:00 Completed [facility] SARS-COV-2 COVID-19 PFIZER VACCINE 2020-06-29 00:00:00 Completed [facility] SARS-COV-2 COVID-19 PFIZER VACCINE 2020-06-29 00:00:00 Completed [facility] SARS-COV-2 COVID-19 PFIZER VACCINE 2020-06-29 00:00:00 Completed [facility] SARS-COV-2 COVID-19 PFIZER VACCINE 2020-06-29 00:00:00 Completed [facility] SARS-COV-2 COVID-19 PFIZER VACCINE 2020-06-29 00:00:00 Completed [facility] SARS-COV-2 COVID-19 PFIZER VACCINE 2020-06-29 00:00:00 Completed [facility] SARS-COV-2 COVID-19 PFIZER VACCINE 2020-06-29 00:00:00 Completed [facility] SARS-COV-2 COVID-19 PFIZER VACCINE 2020-06-29 00:00:00 Completed [facility] SARS-COV-2 COVID-19 PFIZER VACCINE 2020-06-29 00:00:00 Completed [facility] SARS-COV-2 COVID-19 PFIZER VACCINE 2020-06-29 00:00:00 Completed [facility] SARS-COV-2 COVID-19 PFIZER VACCINE 2020-06-29 00:00:00 Completed [facility] SARS-COV-2 COVID-19 PFIZER VACCINE 2020-06-29 00:00:00 Completed [facility] SARS-COV-2 COVID-19 PFIZER VACCINE 2020-06-29 00:00:00 Completed [facility] SARS-COV-2 COVID-19 PFIZER VACCINE 2020-06-08 00:00:00 Completed [facility] SARS-COV-2 COVID-19 PFIZER VACCINE 2020-06-08 00:00:00 Completed [facility] SARS-COV-2 COVID-19 PFIZER VACCINE 2020-06-08 00:00:00 Completed [facility] SARS-COV-2 COVID-19 PFIZER VACCINE 2020-06-08 00:00:00 Completed [facility] SARS-COV-2 COVID-19 PFIZER VACCINE 2020-06-08 00:00:00 Completed [facility] SARS-COV-2 COVID-19 PFIZER VACCINE 2020-06-08 00:00:00 Completed [facility] SARS-COV-2 COVID-19 PFIZER VACCINE 2020-06-08 00:00:00 Completed [facility] SARS-COV-2 COVID-19 PFIZER VACCINE 2020-06-08 00:00:00 Completed [facility] SARS-COV-2 COVID-19 PFIZER VACCINE 2020-06-08 00:00:00 Completed [facility] SARS-COV-2 COVID-19 PFIZER VACCINE 2020-06-08 00:00:00 Completed [facility] SARS-COV-2 COVID-19 PFIZER VACCINE 2020-06-08 00:00:00 Completed [facility] SARS-COV-2 COVID-19 PFIZER VACCINE 2020-06-08 00:00:00 Completed [facility] SARS-COV-2 COVID-19 PFIZER VACCINE 2020-06-08 00:00:00 Completed [facility] SARS-COV-2 COVID-19 PFIZER VACCINE 2020-06-08 00:00:00 Completed [facility] SARS-COV-2 COVID-19 PFIZER VACCINE 2020-06-08 00:00:00 Completed [facility] SARS-COV-2 COVID-19 PFIZER VACCINE 2020-06-08 00:00:00 Completed [facility] SARS-COV-2 COVID-19 PFIZER VACCINE 2020-06-08 00:00:00 Completed [facility] Influenza High Dose Quad 2020-01-11 00:00:00 Completed [facility] Influenza High Dose Quad 2020-01-11 00:00:00 Completed [facility] Influenza High Dose Quad 2020-01-11 00:00:00 Completed [facility] Influenza High Dose Quad 2020-01-11 00:00:00 Completed [facility] Influenza High Dose Quad 2020-01-11 00:00:00 [facility]pleted [facility] Influenza High Dose Quad 2020-01-11 00:00:00 Completed [facility] Influenza High Dose Quad 2020-01-11 00:00:00 Completed [facility] Influenza High Dose Quad 2020-01-11 00:00:00 Completed [facility] Influenza High Dose Quad 2020-01-11 00:00:00 Completed [facility] Influenza High Dose Quad 2020-01-11 00:00:00 Completed [facility] Influenza High Dose Quad 2020-01-11 00:00:00 Completed [facility] Influenza High Dose Quad 2020-01-11 00:00:00 Completed [facility] Influenza High Dose Quad 2020-01-11 00:00:00 Completed [facility] Influenza High Dose Quad 2020-01-11 00:00:00 Completed [facility] Influenza High Dose Quad 2020-01-11 00:00:00 Completed [facility] Influenza High Dose Quad 2020-01-11 00:00:00 Completed [facility] Influenza High Dose Quad 2020-01-11 00:00:00 Completed [facility] Influenza Virus Vaccine Quad IM 3+ YRS 2018-01-05 00:00:00 Completed [facility] Influenza Virus Vaccine Quad IM 3+ YRS 2018-01-05 00:00:00 Completed [facility] Influenza Virus Vaccine Quad IM 3+ YRS 2018-01-05 00:00:00 Completed [facility] Influenza Virus Vaccine Quad IM 3+ YRS 2018-01-05 00:00:00 Completed [facility] Influenza Virus Vaccine Quad IM 3+ YRS 2018-01-05 00:00:00 Completed [facility] Influenza Virus Vaccine Quad IM 3+ YRS 2018-01-05 00:00:00 Completed [facility] Influenza Virus Vaccine Quad IM 3+ YRS 2018-01-05 00:00:00 Completed [facility] Influenza Virus Vaccine Quad IM 3+ YRS 2018-01-05 00:00:00 Completed [facility] Influenza Virus Vaccine Quad IM 3+ YRS 2018-01-05 00:00:00 Completed [facility] Influenza Virus Vaccine Quad IM 3+ YRS 2018-01-05 00:00:00 Completed [facility] Influenza Virus Vaccine Quad IM 3+ YRS 2018-01-05 00:00:00 Completed [facility] Influenza Virus Vaccine Quad IM 3+ YRS 2018-01-05 00:00:00 Completed [facility] Influenza Virus Vaccine Quad IM 3+ YRS 2018-01-05 00:00:00 Completed [facility] Influenza Virus Vaccine Quad IM 3+ YRS 2018-01-05 00:00:00 Completed [facility] Influenza Virus Vaccine Quad IM 3+ YRS 2018-01-05 00:00:00 Completed [facility] Influenza Virus Vaccine Quad IM 3+ YRS 2018-01-05 00:00:00 Completed [facility] Influenza Virus Vaccine Quad IM 3+ YRS 2018-01-05 00:00:00 Completed [facility] Influenza Virus Vaccine Quad ID 18-64 YRS 2016-01-03 00:00:00 Completed [facility] Influenza Virus Vaccine Quad ID 18-64 YRS 2016-01-03 00:00:00 Completed [facility] Influenza Virus Vaccine Quad ID 18-64 YRS 2016-01-03 00:00:00 Completed [facility] Influenza Virus Vaccine Quad ID 18-64 YRS 2016-01-03 00:00:00 Completed [facility] Influenza Virus Vaccine Quad ID 18-64 YRS 2016-01-03 00:00:00 Completed [facility] Influenza Virus Vaccine Quad ID 18-64 YRS 2016-01-03 00:00:00 Completed [facility] Influenza Virus Vaccine Quad ID 18-64 YRS 2016-01-03 00:00:00 Completed [facility] Influenza Virus Vaccine Quad ID 18-64 YRS 2016-01-03 00:00:00 Completed [facility] Influenza Virus Vaccine Quad ID 18-64 YRS 2016-01-03 00:00:00 Completed [facility] Influenza Virus Vaccine Quad ID 18-64 YRS 2016-01-03 00:00:00 Completed [facility] Influenza Virus Vaccine Quad ID 18-64 YRS 2016-01-03 00:00:00 Completed [facility] Influenza Virus Vaccine Quad ID 18-64 YRS 2016-01-03 00:00:00 Completed [facility] Influenza Virus Vaccine Quad ID 18-64 YRS 2016-01-03 00:00:00 Completed [facility] Influenza Virus Vaccine Quad ID 18-64 YRS 2016-01-03 00:00:00 Completed [facility] Influenza Virus Vaccine Quad ID 18-64 YRS 2016-01-03 00:00:00 Completed [facility] Influenza Virus Vaccine Quad ID 18-64 YRS 2016-01-03 00:00:00 Completed [facility] Influenza Virus Vaccine Quad ID 18-64 YRS 2016-01-03 00:00:00 Completed [facility] Influenza Virus Vaccine Quad IM 3+ YRS Unknown Completed [facility] Influenza High Dose Quad Unknown Completed [facility] SARS-COV-2 COVID-19 PFIZER VACCINE Unknown Completed [facility] SARS-COV-2 COVID-19 PFIZER VACCINE Unknown Completed [facility] SARS-COV-2 COVID-19 PFIZER VACCINE Unknown Completed [facility] Pneumococcal 20 Conjugate, PCV20 (Prevnar 20) Unknown Completed [facility] Influenza Virus Vaccine Quad ID 18-64 YRS Unknown Completed [facility] Influenza Virus Vaccine Quad IM 3+ YRS Unknown Completed [facility] Influenza High Dose Quad Unknown Completed [facility] SARS-COV-2 COVID-19 PFIZER VACCINE Unknown Completed [facility] SARS-COV-2 COVID-19 PFIZER VACCINE Unknown Completed [facility] SARS-COV-2 COVID-19 PFIZER VACCINE Unknown Completed [facility] Pneumococcal 20 Conjugate, PCV20 (Prevnar 20) Unknown Completed [facility] Influenza Virus Vaccine Quad ID 18-64 YRS Unknown Completed [facility] Influenza Virus Vaccine Quad IM 3+ YRS Unknown Completed [facility] Influenza High Dose Quad Unknown Completed [facility] SARS-COV-2 COVID-19 PFIZER VACCINE Unknown Completed [facility] SARS-COV-2 COVID-19 PFIZER VACCINE Unknown Completed [facility] SARS-COV-2 COVID-19 PFIZER VACCINE Unknown Completed [facility] Pneumococcal 20 Conjugate, PCV20 (Prevnar 20) Unknown Completed [facility] Influenza Virus Vaccine Quad ID 18-64 YRS Unknown Completed [facility] Influenza Virus Vaccine Quad IM 3+ YRS Unknown Completed [facility] Influenza High Dose Quad Unknown Completed [facility] SARS-COV-2 COVID-19 PFIZER VACCINE Unknown Completed [facility] SARS-COV-2 COVID-19 PFIZER VACCINE Unknown Completed [facility] SARS-COV-2 COVID-19 PFIZER VACCINE Unknown Completed [facility] Pneumococcal 20 Conjugate, PCV20 (Prevnar 20) Unknown Completed [facility] Influenza Virus Vaccine Quad ID 18-64 YRS Unknown Completed [facility] Influenza Virus Vaccine Quad IM 3+ YRS Unknown Completed [facility] Influenza High Dose Quad Unknown Completed [facility] SARS-COV-2 COVID-19 PFIZER VACCINE Unknown Completed [facility] SARS-COV-2 COVID-19 PFIZER VACCINE Unknown Completed [facility] SARS-COV-2 COVID-19 PFIZER VACCINE Unknown Completed [facility] Pneumococcal 20 Conjugate, PCV20 (Prevnar 20) Unknown Completed [facility] Influenza Virus Vaccine Quad ID 18-64 YRS Unknown Completed [facility] Influenza Virus Vaccine Quad IM 3+ YRS Unknown Completed [facility] Influenza High Dose Quad Unknown Completed [facility] SARS-COV-2 COVID-19 PFIZER VACCINE Unknown Completed [facility] SARS-COV-2 COVID-19 PFIZER VACCINE Unknown Completed [facility] SARS-COV-2 COVID-19 PFIZER VACCINE Unknown Completed [facility] Pneumococcal 20 Conjugate, PCV20 (Prevnar 20) Unknown Completed [facility] Influenza Virus Vaccine Quad ID 18-64 YRS Unknown Completed [facility] Influenza Virus Vaccine Quad IM 3+ YRS Unknown Completed [facility] Influenza High Dose Quad Unknown Completed [facility] SARS-COV-2 COVID-19 PFIZER VACCINE Unknown Completed [facility] SARS-COV-2 COVID-19 PFIZER VACCINE Unknown Completed [facility] SARS-COV-2 COVID-19 PFIZER VACCINE Unknown Completed [facility] Influenza Virus Vaccine Quad ID 18-64 YRS Unknown Completed [facility] Influenza Virus Vaccine Quad IM 3+ YRS Unknown Completed [facility] Influenza High Dose Quad Unknown Completed [facility] SARS-COV-2 COVID-19 PFIZER VACCINE Unknown Completed [facility] SARS-COV-2 COVID-19 PFIZER VACCINE Unknown Completed [facility] SARS-COV-2 COVID-19 PFIZER VACCINE Unknown Completed [facility] Influenza Virus Vaccine Quad ID 18-64 YRS Unknown Completed [facility] Influenza Virus Vaccine Quad IM 3+ YRS Unknown Completed [facility] Influenza High Dose Quad Unknown Completed [facility] SARS-COV-2 COVID-19 PFIZER VACCINE Unknown Completed [facility] SARS-COV-2 COVID-19 PFIZER VACCINE Unknown Completed [facility] SARS-COV-2 COVID-19 PFIZER VACCINE Unknown Completed [facility] Influenza Virus Vaccine Quad ID 18-64 YRS Unknown Completed [facility] Influenza Virus Vaccine Quad IM 3+ YRS Unknown Completed [facility] Influenza High Dose Quad Unknown Completed [facility] SARS-COV-2 COVID-19 PFIZER VACCINE Unknown Completed [facility] SARS-COV-2 COVID-19 PFIZER VACCINE Unknown Completed [facility] SARS-COV-2 COVID-19 PFIZER VACCINE Unknown Completed [facility] Influenza Virus Vaccine Quad ID 18-64 YRS Unknown Completed [facility] Influenza Virus Vaccine Quad IM 3+ YRS Unknown Completed [facility] Influenza High Dose Quad Unknown Completed [facility] SARS-COV-2 COVID-19 PFIZER VACCINE Unknown Completed [facility] SARS-COV-2 COVID-19 PFIZER VACCINE Unknown Completed [facility] SARS-COV-2 COVID-19 PFIZER VACCINE Unknown Completed [facility] Influenza Virus Vaccine Quad ID 18-64 YRS Unknown Completed [facility] Influenza Virus Vaccine Quad IM 3+ YRS Unknown Completed [facility] Influenza High Dose Quad Unknown Completed [facility] SARS-COV-2 COVID-19 PFIZER VACCINE Unknown Completed [facility] SARS-COV-2 COVID-19 PFIZER VACCINE Unknown Completed [facility] SARS-COV-2 COVID-19 PFIZER VACCINE Unknown Completed [facility] Influenza Virus Vaccine Quad ID 18-64 YRS Unknown Completed [facility] Influenza Virus Vaccine Quad IM 3+ YRS Unknown Completed [facility] Influenza High Dose Quad Unknown Completed [facility] SARS-COV-2 COVID-19 PFIZER VACCINE Unknown Completed [facility] SARS-COV-2 COVID-19 PFIZER VACCINE Unknown Completed [facility] SARS-COV-2 COVID-19 PFIZER VACCINE Unknown Completed [facility] Influenza Virus Vaccine Quad ID 18-64 YRS Unknown Completed [facility] Influenza Virus Vaccine Quad IM 3+ YRS Unknown Completed [facility] Influenza High Dose Quad Unknown Completed [facility] SARS-COV-2 COVID-19 PFIZER VACCINE Unknown Completed [facility] SARS-COV-2 COVID-19 PFIZER VACCINE Unknown Completed [facility] SARS-COV-2 COVID-19 PFIZER VACCINE Unknown Completed [facility] Influenza Virus Vaccine Quad ID 18-64 YRS Unknown Completed [facility] Vital Signs Vital Name Observation Time Observation Value Comments S ource Systolic blood pressure 2023-04-29 21:27:00 115 mm[Hg] [facility] Diastolic blood pressure 2023-04-29 21:27:00 76 mm[Hg] [facility] Heart rate 2023-04-29 21:27:00 47 /min [facility] Respiratory rate 2023-04-29 21:27:00 18 /min [facility] Body height 2023-04-29 21:27:00 167.6 cm [facility] Body weight 2023-04-29 21:27:00 70.308 kg [facility] BMI 2023-04-29 21:27:00 25.02 kg/m2 [facility] Oxygen saturation in Arterial blood by Pulse oximetry 2023-04-29 21:27:00 97 /min [facility] Systolic blood pressure 2023-04-29 14:43:00 127 mm[Hg] [facility] Diastolic blood pressure 2023-04-29 14:43:00 69 mm[Hg] [facility] Heart rate 2023-04-29 14:43:00 43 /min [facility] Respiratory rate 2023-04-29 14:43:00 18 /min [facility] Body height 2023-04-29 14:43:00 167.6 cm [facility] Body weight 2023-04-29 14:43:00 70.897 kg [facility] BMI 2023-04-29 14:43:00 25.23 kg/m2 [facility] Oxygen saturation in Arterial blood by Pulse oximetry 2023-04-29 14:43:00 97 /min [facility] Heart rate 2023-04-17 21:32:00 54 /min [facility] Respiratory rate 2023-04-17 21:32:00 20 /min [facility] Oxygen saturation in Arterial blood by Pulse oximetry 2023-04-17 21:32:00 97 /min [facility] Systolic blood pressure 2023-04-17 18:45:00 124 mm[Hg] [facility] Diastolic blood pressure 2023-04-17 18:45:00 77 mm[Hg] [facility] Body temperature 2023-04-17 18:45:00 36.72 [facility] Body height 2023-04-15 21:02:00 167.6 cm [facility] Body weight 2023-04-15 21:02:00 71.668 kg [facility] BMI 2023-04-15 21:02:00 25.50 kg/m2 [facility] Systolic blood pressure 2023-03-31 21:02:00 116 mm[Hg] [facility] Diastolic blood pressure 2023-03-31 21:02:00 70 mm[Hg] [facility] Heart rate 2023-03-31 21:02:00 72 /min [facility] Body height 2023-03-31 21:02:00 167.6 cm [facility] Body weight 2023-03-31 21:02:00 72.576 kg [facility] BMI 2023-03-31 21:02:00 25.82 kg/m2 [facility] Oxygen saturation in Arterial blood by Pulse oximetry 2023-03-31 21:02:00 96 /min [facility] Systolic blood pressure 2023-03-23 20:00:00 118 mm[Hg] [facility] Diastolic blood pressure 2023-03-23 20:00:00 70 mm[Hg] [facility] Heart rate 2023-03-23 20:00:00 65 /min [facility] Body temperature 2023-03-23 20:00:00 37 Lia [facility] Respiratory rate 2023-03-23 20:00:00 20 /min [facility] Body height 2023-03-23 20:00:00 167.6 [facility] 2023-03-23 20:00:00 70.761 [facility] 2023-03-23 20:00:00 25.18 kg/m2 [facility] in Arterial blood by Pulse oximetry 2023-03-23 20:00:00 96 /min [facility] Systolic blood pressure 2022-10-13 17:47:00 127 mm[Hg] [facility] Diastolic blood pressure 2022-10-13 17:47:00 71 mm[Hg] [facility] Heart rate 2022-10-13 17:47:00 54 /min [facility] Body temperature 2022-10-13 17:47:00 36.61 [facility] Respiratory rate 2022-10-13 17:47:00 16 /min [facility] Body height 2022-10-13 17:47:[address] [facility] Body weight 2022-10-13 17:47:[address] [facility] BMI 2022-10-13 17:47:00 25.15 kg/m2 [facility] Oxygen saturation in Arterial blood by Pulse oximetry 2022-10-13 17:47:00 95 /min [facility] Systolic blood pressure 2022-08-18 23:08:00 117 mm[Hg] [facility] Diastolic blood pressure 2022-08-18 23:08:00 59 mm[Hg] [facility] Heart rate 2022-08-18 23:08:00 82 /min [facility] temperature 2022-08-18 23:08:00 36.94 [facility] Body height 2022-08-18 23:08:00 167.6 cm [facility] 2022-08-18 23:08:[address] [facility] BMI 2022-08-18 23:08:00 25.34 kg/m2 [facility] Oxygen saturation in Arterial blood by Pulse oximetry 2022-08-18 23:08:00 95 /min [facility] Systolic blood pressure 2022-07-01 20:34:00 136 mm[Hg] [facility] Diastolic blood pressure 2022-07-01 20:34:00 73 mm[Hg] [facility] Heart rate 2022-07-01 20:34:00 50 /min [facility] Body temperature 2022-07-01 20:34:00 36.11 [facility] Respiratory rate 2022-07-01 20:34:00 19 /min [facility] Body height 2022-07-01 20:34:[address] [facility] Body weight 2022-07-01 20:34:00 73.029 kg [facility] BMI 2022-07-01 20:34:00 25.99 kg/m2 [facility] Oxygen saturation in Arterial blood by Pulse oximetry 2022-07-01 20:34:00 99 /min [facility] Systolic blood pressure 2022-04-13 23:00:00 136 mm[Hg] [facility] Diastolic blood pressure 2022-04-13 23:00:00 79 mm[Hg] [facility] Heart rate 2022-04-13 23:00:00 50 /min [facility] Body temperature 2022-04-13 23:00:00 36.44 [facility] Respiratory rate 2022-04-13 23:00:00 19 /min [facility] Body weight 2022-04-13 23:00:[address] [facility] BMI 2022-04-13 23:00:00 25.15 kg/m2 [facility] Oxygen saturation in Arterial blood by Pulse oximetry 2022-04-13 23:00:00 99 /min [facility] Systolic blood pressure 2021-10-13 17:13:00 147 mm[Hg] [facility] Diastolic blood pressure 2021-10-13 17:13:00 84 mm[Hg] [facility] Heart rate 2021-10-13 17:13:00 63 /min [facility] Body temperature 2021-10-13 17:13:00 36.83 [facility] Respiratory rate 2021-10-13 17:13:00 20 /min [facility] Body height 2021-10-13 17:13:00 167.6 cm [facility] Body weight 2021-10-13 17:13:00 69.4 kg [facility] BMI 2021-10-13 17:13:00 24.69 kg/m2 [facility] Oxygen saturation in Arterial blood by Pulse oximetry 2021-10-13 17:13:00 97 /min [facility] Systolic blood pressure 2021-09-25 14:53:00 104 mm[Hg] [facility] Diastolic blood pressure 2021-09-25 14:53:00 60 mm[Hg] [facility] Heart rate 2021-09-25 14:53:00 49 /min [facility] Body height 2021-09-25 14:53:00 167.6 cm [facility] Body weight 2021-09-25 14:53:00 68.947 kg [facility] BMI 2021-09-25 14:53:00 24.53 kg/m2 [facility] Procedures Procedure Date / Time Performed Performing Clinician Source CT THORAX WO CONTRAST 2023-05-03 14:37:07 Radha Forrester [facility] PNEUMOCOCCAL 20 CONJUGATE (PREVNAR 20) VACCINE 2023-04-29 15:21:11 Radha Chao [facility] MAGNESIUM 2023-04-17 10:22:00 Jose Manuel Pride [facility] BASIC METABOLIC PANEL (NA, K, CL, CO2, GLUCOSE, BUN, CREATININE, CA) 2023-04-17 10:22:00 Shannen [facility] CBC WITH DIFF 2023-04-17 10:22:00 Shannen Jose Manuel [facility] ACTIVATED PARTIAL THRMPLAS OLIVER 2023-04-16 19:45:00 Kenneth Jim[facility]nez [facility] MRSA / MSSA SCREEN BY PCRMARILYN 2023-04-16 19:45:00 Kenneth Jiménez [facility] TRANSTHORACIC ECHO (TTE) COMPLETE W/ CONTRAST 2023-04-16 18:11:56 Jayy Zuniga [facility] PROTHROMBIN TIME / INR 2023-04-16 12:51:00 Ubaldo Jim[facility]nez [facility] ACTIVATED PARTIAL THRMPLAS OLIVER 2023-04-16 12:51:00 Kenneth Jiménez [facility] MAGNESIUM 2023-04-16 10:33:00 Kenneth Jiménez [facility] BASIC METABOLIC PANEL (NA, K, CL, CO2, GLUCOSE, BUN, CREATININE, CA) 2023-04-16 10:33:00 Kenneth Jiménez [facility] URINE DRUG (IMMUNOASSAY) - COMPREHENSIVE DRUG SCREEN 2023-04-16 10:33:00 Kenneth Jiménez [facility] PROTHROMBIN TIME / INR 2023-04-16 10:33:00 Ubaldo Jiménez [facility] ACTIVATED PARTIAL THRMPLAS OLIVER 2023-04-16 10:33:00 Kenneth Jiménez [facility] HB ECG ROUTINE & RHYTHM STRIP 2023-04-16 07:40:43 Joann Hamilton [facility] XR CHEST 1 VW 2023-04-15 21:42:06 [facility] R[facility] A/B 2023-04-15 21:22:00 Frannie Hamilton ra [facility] COVID-19 (ID NOW RAPID TESTING) 2023-04-15 21:22:00 Joann Hamilton [facility] LAB ONLY COVID INTERPRETATION 2023-04-15 21:22:00 Joann Hamilton [facility] LIPASE 2023-04-15 21:18:00 [facility] 2023-04-15 21:18:00 Joann Hamilton [facility] TROPONIN I 2023-04-15 21:18:00 Joann Hamilton [facility] FREE T4 2023-04-15 21:18:00 [facility] TH[facility] HORMONE 2023-04-15 21:18:00 Joann Hamilton [facility] COMP. METABOLIC PANEL (45476) 2023-04-15 21:18:00 Joann Hamilton [facility] LIPID PANEL (17386)(TOTAL CHOLESTEROL, TRIGLYCERIDES, HDL) 2023-04-15 21:18:00 Eros Mckeon [facility] CBC WITH DIFF 2023-04-15 21:18:00 [facility] GLYCOSYLATED HEMOGLOBIN (A1C) 2023-04-15 21:18:00 Eros Mckeon [facility] N-TERMINAL PRO-BNP 2023-04-15 21:18:00 Hieu Hamilton [facility] FREE T3 2023-04-15 21:18:00 [facility]OUT[facility] & RHYTHM STRIP 2023-04-15 21:08:04 Joann Hamilton [facility] CONSENT/REFUSAL FOR DIAGNOSIS AND TREATMENT 2023-04-15 20:56:33 Doctor Unassigned, [place] [facility] POCT MOLECULAR FLU 2023-03-23 20:09:00 Unknown, Attend [facility] POCT MOLECULAR STREP 2023-03-23 20:06:00 Unknown, Atteden edgar [facility] POCT SARS-COV-2 ANTIGEN (BINAX NOW) 2023-03-23 00:00:00 Kirsten Riley [facility] ASSIGNMENT OF BENEFITS 2022-10-13 17:31:36 Docto r Unassigned, [place] [facility] POCT MOLECULAR FLU 2022-08-18 23:07:00 Unknown, Attend [facility] POCT MOLECULAR STREP 2022-08-18 23:05:00 Unknown, Atteden edgar [facility] PATIENT FINANCIAL POLICY 2022-07-01 20:28:09 Doctor Unassigned, [place] [facility] Encounters Start Date/Time End Date/Time Encounter Type Admission Type Attending [facility] Care Facility Care Department Encounter ID Source 2021-02-10 02:34:19 Outpatient BORIS CHEN [facility] [id number] [facility] 2021-02-09 17:28:05 Outpatient R BORIS MARADIAGA [facility] O[facility] [id number] [facility] 2023-06-11 10:30:00 2023-06-11 10:30:00 Outpatient R JAMES QUIROS SHIWAN [facility] [id number] [facility] 2023-05-03 08:17:22 2023-05-03 23:59:00 Outpatient R RADHA CHAO [facility] [id number] [facility] 2023-05-03 08:17:22 2023-05-03 23:59:00 Hospital Encounter Radha Chao [facility] 1.2.840.114 350.1.13.10 4.2.7.2.686 [id number] [facility] 2023-04-30 00:00:00 2023-04-30 00:00:00 Patient Secure Msg [facility] 1.2.840.114 350.1.13.10 4.2.7.2.686 [id number] [facility] 2023-04-29 15:40:00 2023-04-29 15:50:36 Office Visit Jane Liriano yazmin [facility] 1.2.840.114 350.1.13.10 4.2.7.2.686 [id number] [facility] 2023-04-29 09:00:00 2023-04-29 09:30:03 Outpatient R RADHA CHAO [facility] [id number] [facility] 2023-04-29 09:00:00 2023-04-29 09:30:03 Office Visit Radha Chao [facility] 1.2.840.114 350.1.13.10 4.2.7.2.686 [id number] [facility] 2023-04-19 00:00:00 2023-04-19 00:00:00 Transition of Care Wilfredo Nima [facility] 1.114 350.1.13.10 4.2.7.2.686 [id number] [facility] 2023-04-19 00:00:00 2023-04-19 00:00:00 Telephone Sergio [facility] 1..114 350.1.13.10 4.2.7.2.686 [id number] [facility] 2023-04-19 00:00:00 2023-04-19 00:00:00 Telephone Sergio [facility] 1..114 350.1.13.10 4.2.7.2.686 [id number] [facility] 2023-04-15 15:11:00 2023-04-17 16:23:00 Inpatient X [facility] [id number] [facility] 2023-04-15 15:11:00 2023-04-17 16:23:00 Hospital Encounter Joann Hamilton [place], [place] [facility] 1.114 350.1.13.10 4.2.7.2.686 [id number] [facility] 2023-04-13 00:00:00 2023-04-13 00:00:00 Patient Secure Msg Doctor Unassigned, [place] [facility] 1.84.114 350.1.13.10 4.2.7.2.686 [id number] [facility] 2023-03-31 15:15:00 2023-03-31 15:30:00 Office Visit Yazan Hill [facility] AJIT?TIFFANIEClaudia [facility] 1..840.114 350.1.13.10 4.2.7.2.686 [id number] [facility] 2023-03-31 15:15:00 2023-03-31 15:13:59 Outpatient R SERGIO YAZAN [facility] [id number] [facility] 2023-03-23 14:00:00 2023-03-23 14:42:13 Outpatient R KEENA KIRSTEN [facility] [id number] [facility] 2023-03-23 14:00:00 2023-03-23 14:42:13 Urgent Care Kirsten Riley Unknown, Attending [facility]TIFFANIEClaudia [facility] 1..840.114 350.1.13.10 4.2.7.2.686 [id number] [facility] 2022-10-13 12:20:00 2022-10-13 13:15:39 Outpatient R DAVE TAPIA [facility] [id number] [facility] 2022-10-13 12:20:00 2022-10-13 13:15:39 Urgent Care Dave Tapia Unknown, Attending [facility]TIFFANIEClaudia [facility] 1..840.114 350.1.13.10 4.2.7.2.686 [id number] [facility] 2022-10-13 00:00:00 2022-10-13 00:00:00 Orders Only Doctor Unassigned, [place] [facility] 1.840.114 350.1.13.10 4.2.7.2.686 [id number] [facility] 2022-09-18 00:00:00 2022-09-18 00:00:00 Refill Yazan Hill [facility] AJIT?[facility] 1.840.114 350.1.13.10 4.2.7.2.686 [id number] [facility] 2022-08-18 18:20:00 2022-08-18 18:26:24 Outpatient R DAVE TAPIA [facility] [id number] [facility] 2022-08-18 18:20:00 2022-08-18 18:26:24 Urgent Care Dave Tapia Unknown, Attending [facility] 1.840.114 350.1.13.10 4.2.7.2.686 [id number] [facility] 2022-07-01 15:20:00 2022-07-01 16:10:28 Outpatient R DASHA BROOKS [facility] [id number] [facility] 2022-07-01 15:20:00 2022-07-01 15:40:00 Urgent Care Dasha Brooks Unknown, Attending [facility] 1.84.114 350.1.13.10 4.2.7.2.686 [id number] [facility] 2022-07-01 00:00:00 2022-07-01 00:00:00 Orders Only Doctor Unassigned, [place] [facility] 1.84.114 350.1.13.10 4.2.7.2.686 [id number] [facility] 2022-07-01 00:00:00 2022-07-01 00:00:00 [facility]ill [facility] 1.84.114 350.1.13.10 4.2.7.2.686 [id number] [facility] 2022-04-13 16:40:00 2022-04-13 17:00:00 Urgent Care Rnea Lucio Unknown, Attending [facility] 1.84.114 350.1.13.10 4.2.7.2.686 [id number] [facility] 2022-04-13 16:40:00 2022-04-13 16:40:00 Outpatient R RENA LUCIO [facility] [id number] [facility] 2021-11-25 00:00:00 2021-11-25 00:00:00 Telephone Team, [facility] 1.84.114 350.1.13.10 4.2.7.2.686 [id number] [facility] 2021-10-20 00:00:00 2021-10-20 00:00:00 Telephone [place] 1..114 350.1.13.10 4.2.7.2.686 [id number] [facility] 2021-10-19 09:00:00 2021-10-19 09:15:00 Laboratory Only Only, Ang Db Girish Greer [facility] 1.84.114 350.1.13.10 4.2.7.2.686 [id number] [facility] 2021-10-19 09:00:00 2021-10-19 09:13:50 Outpatient Gary GREER YANY [facility] [id number] [facility] 2021-10-14 00:00:00 2021-10-14 00:00:00 Patient Secure Yazan Ryan [facility] 1.84.114 350.1.13.10 4.2.7.2.686 [id number] [facility] 2021-10-13 12:20:00 2021-10-13 12:40:00 Urgent Care Maryse Howard [facility] 1..840.114 350.1.13.10 4.2.7.2.686 [id number] [facility] 2021-10-13 12:20:00 2021-10-13 12:27:08 Outpatient R MARYSE HOWARD [facility] [id number] [facility] 2021-10-13 00:00:00 2021-10-13 00:00:00 Telephone Scar Cordova [facility] 1.840.114 350.1.13.10 4.2.7.2.686 [id number] [facility] 2021-09-25 10:45:00 2021-09-25 11:00:00 Bilingual Sales Representative Visit Lab, Jeff Johnsmagy [facility] MEDICAL OFFICE BUILDING 1..840.114 350.1.13.10 4.2.7.2.686 [id number] [facility] 2021-09-25 10:00:00 2021-09-25 10:15:00 [facility] MEDICAL OFF[facility] BUILD[facility] 1..840.114 350.1.13.10 4.2.7.2.686 [id number] [facility] 2021-09-25 10:00:00 2021-09-25 10:12:10 Outpatient YAZAN SOL [facility] [id number] [facility] 2021-09-25 10:00:00 2021-09-25 10:00:00 [facility] [id number] 2021-09-25 00:00:00 2021-09-25 00:00:00 Orders Only Doctor Unassigned, [place] [facility] 1.2.840.114 350.1.13.10 4.2.7.2.686 [id number] [facility] 2021-09-24 14:30:00 2021-09-24 14:30:00 Outpatient YAZAN SOL [facility] [id number] [facility] 2021-09-18 07:30:00 2021-09-18 07:30:00 Outpatient YAZAN SOL [facility] [id number] [facility] 2021-08-06 00:00:00 2021-08-06 00:00:00 Refjae Hill [facility] OFFICE BUILDING ONE .84.114 350.1.13.10 4.2.7.2.686 [id number] [facility] 2021-06-09 00:00:00 2021-06-09 00:00:00 Telephone Team, [facility] ..114 350.1.13.10 4.2.7.2.686 [id number] [facility] 2021-05-27 10:00:00 2021-05-27 10:00:00 Outpatient Gary SHAHAB HILLONY [facility] [id number] [facility] 2021-05-24 10:40:00 2021-05-24 11:25:11 Outpatient R PERCY YANY [facility] [id number] [facility] 2021-05-24 10:40:00 2021-05-24 11:25:11 Urgent Care Percy [facility] AJIT?[facility] MEDICAL OFFICE BUILDING .84.114 350.1.13.10 4.2.7.2.686 [id number] [facility] 2021-05-07 00:00:00 2021-05-07 00:00:00 Refjae Hill [facility] OFFICE BUILDING ONE .2.840.114 350.1.13.10 4.2.7.2.686 [id number] [facility] 2021-02-22 11:00:00 2021-02-22 11:00:00 Outpatient R RENA LUCIO [facility] [id number] [facility] 2021-02-22 10:48:19 2021-02-22 10:58:19 Imm/Inj Visit Vaccine, Ang Db U[facility] Naveed [facility] AJIT?[facility] 1.2840.114 350.1.13.10 4.2.7.2.686 [id number] [facility] 2020-11-14 00:00:00 2020-11-14 00:00:00 Yazan Hines [facility] Office Building One 1.2840.114 350.1.13.10 4.2.7.2.686 [id number] [facility] 2020-10-02 09:30:00 2020-10-02 13:26:00 Hospital Encounter [place] [facility] 1.2.840.114 350.1.13.10 4.2.7.2.686 [id number] [facility] 2020-10-02 12:18:00 2020-10-02 13:00:00 Surgery [facility] [place] [facility] 1.2.840.114 350.1.13.10 4.2.7.2.686 [id number] [facility] 2020-08-27 09:53:47 2020-08-27 10:08:47 Laboratory Only Only, Adc Test [facility] [place] [facility] 1.2.840.114 350.1.13.10 4.2.7.2.686 [id number] [facility] 2020-08-27 10:00:00 2020-08-27 10:00:00 Outpatient BORIS CHEN [facility] [id number] [facility] 2020-08-21 16:14:37 2020-08-21 16:29:37 Bilingual Sales Representative Visit Pob, Adc Lab Amandeep Boris Maradiaga Claudia [facility] Building 1..114 350.1.13.10 4.2.7.2.686 [id number] [facility] 2020-08-21 15:45:00 2020-08-21 15:45:00 Outpatient BORIS CHEN [facility] [id number] [facility] 2020-08-21 00:00:00 2020-08-21 00:00:00 Orders Only Doctor Unassigned, [place] [facility] 1..114 350.1.13.10 4.2.7.2.686 [id number] [facility] 2020-06-29 10:15:00 2020-06-29 10:15:00 Outpatient [facility] [id number] [facility] 2020-06-08 10:25:00 2020-06-08 10:25:00 Outpatient JOHN GALDAMEZ [facility] [id number] [facility] 2020-05-31 00:00:00 2020-05-31 00:00:00 [facility] 1..114 350.1.13.10 4.2.7.2.686 [id number] [facility] 2020-05-24 00:00:00 2020-05-24 00:00:00 Yazan Oconnell [facility] Office Building One 1..114 350.1.13.10 4.2.7.2.686 [id number] [facility] 2020-05-23 09:00:00 2020-05-23 09:00:00 Outpatient R YAZAN HILL [facility] [id number] [facility] 2020-05-23 07:32:30 2020-05-23 07:52:30 Bilingual Sales Representative Visit Lab, [facility] Hill [facility] Office Building One 1.2840.114 350.1.13.10 4.2.7.2.686 [id number] [facility] 2020-05-23 07:22:00 2020-05-23 07:52:00 Office Visit Yazan Hill [facility] Office Building One 1.84.114 350.1.13.10 4.2.7.2.686 [id number] [facility] 2019-12-19 17:54:47 2019-12-19 19:37:13 Urgent Care Provider, [facility] One 1.84.114 350.1.13.10 4.2.7.2.686 [id number] [facility] 2019-12-19 18:00:00 2019-12-19 18:00:00 Outpatient NICHOLE CLEMENTS [facility] [id number] [facility] 2019-04-26 00:00:00 2019-04-26 00:00:00 Orders Only Doctor Unassigned, [place] [facility] 1.284.114 350.1.13.10 4.2.7.2.686 [id number] [facility] Results Test Description Test Time Test Comments Results Result Comments Source CT THORAX WO CONTRAST 2023-04 20:43:3 2 PROCEDURE: CT CHEST WITHOUT CONTRAST - CHEST PROTOCOL CLINICAL INDICATION: 67 years-old Male with Cough, chronic/persisting > 8weeks 40 pack year smoking history . Comparison: ?Chest x-ray 04/15/2023 TECHNIQUE: Volumetric images of the chest were acquired (from lung apicesto bases). Images were reconstructed at 2.5 mm slice thickness. MIP axialimages, coronal and sagittal reformats were also submitted forinterpretation. FINDINGS: Devices: None LUNGS AND PLEURA: The lungs are well-expanded and clear. No focal opacitiesare identified. 5 mm solid pulmonary nodule in the right lower lobe (series3 image 49). No pleural abnormality detected. LYMPH NODES: Scattered small lymph nodes in both sides of the mediastinumand hilar regions. No evidence of intrathoracic lymphadenopathy. MEDIASTINUM AND LOWER NECK: No central airway lesions are detected. Theesophagus is within normal limits. The included thyroid gland appearsnormal. HEART AND GREAT VESSELS: The heart is normal in size. No pericardialabnormalities are identified. The RV to LV is normal. Mild atheroscleroticcalcifications of the coronary vessels. The thoracic aorta is normal in caliber, with ?mild atherosclerotic plaque.The pulmonary trunk is normal in caliber. VISUALIZED UPPER ABDOMEN: A 2.5 cm fat density nodule of the left adrenalgland. OSSEOUS STRUCTURES AND SOFT TISSUES: No focal osseous lesions are detected.The soft tissues appear normal. [facility] (for use with Heparin Infusion)2023-04-16 20:13:34* Test Item Value Reference Range [facility]ation [facility] (test code = 3173-2) 102 See_Comment HH [Kabbee] The system which generated this result transmitted reference range: 26 - 36 Seconds. The reference range was not used to interpret this result as normal/abnormal. Lab Interpretation (test code = 64533-4) Abnormal [facility] / UFE3019-31-72 13:09:22* Test Item Value Reference Range Interpretation Comme [facility] PROTIME PATIENT (test code = 5964-2) 12.2 See_Comment [Kabbee] The system which generated this result transmitted reference range: 10.1 - 12.6 Seconds. The reference range was not used to interpret this result as normal/abnormal. INR (test code = 6301-6) 1.1 Normal INR <1.1; Warfarin Therapeutic range 2.0 to 3.0 or 2.5 to 3.5, depending upon the indications. Lab Interpretation (test code = 77148-5) Normal [facility] 13:09:22* Test Item Value Reference Range Interpretation Comme nts APTT Patient (test code = 3173-2) 28 See_Comment [Automated ShowClixa ge] The system which generated this result transmitted reference range: 26 - 36 Seconds. The reference range was not used to interpret this result as normal/abnormal. Lab Interpretation (test code = 90112-4) Normal [facility] HospitalBasi Metabolic Panel (NA, K, CL, CO2, GLUCOSE, BUN, CREATININE, CA)2023-04-16 11:26:16* Test Item Value Reference Range Interpretation Comme nts NA (test code = 4473249017) 138 mmol/L 135-145 K (test code = 4084113470) 4.1 mmol/L 3.5-5.0 CL (test code = 2158198492) 105 mmol/L 98-108 CO2 TOTAL (test code = 3070505184) 29 mmol/L 23-31 AGAP (test code = 7006620872) 4 2-16 BUN (test code = 8943852810) 16 mg/dL 7-23 GLUCOSE (test code = 7276874103) 100 mg/dL 70-110 CREATININE (test code = 1810074688) 0.94 mg/dL 0.60-1.25 CALCIUM (test code = 4025369046) 8.8 mg/dL 8.6-10.6 eGFR (test code = 03044-3) 87.8 mL/min/1.73m2 CKD-EPI eGFR (20 21). Assuming creatinine has been stable day-to-day for at least three months, the eGFR indicates Category G2 (60 - 89 mL/min/1.73 m2) [facility] 11:26:16* Test Item Value Reference Range Interpretation Comme nts MAGNESIUM (test code = 1821764728) 2.3 mg/dL 1.7-2.4 Lab Interpretation (test cod e = 51927-5) Normal [facility]Pro[facility] Time / BDF9341-24-48 10:55:50* Test Item Value Reference Range Interpretation Comme nts PROTIME PATIENT (test code = 5964-2) 12.1 See_Comment [Automated ShowClixa Therapeutic Proteins] The system which generated this result transmitted reference range: 10.1 - 12.6 Seconds. The reference range was not used to interpret this result as normal/abnormal. INR (test code = 6301-6) 1.1 Normal INR <1.1; Warfarin Therapeutic range 2.0 to 3.0 or 2.5 to 3.5, depending upon the indications. Lab Interpretation (test code = 23689-2) Normal [facility] 10:55:50* Test Item Value Reference Range Interpretation Comme nts APTT Patient (test code = 3173-2) 28 See_Comment [Automated messa ge] The system which generated this result transmitted reference range: 26 - 36 Seconds. The reference range was not used to interpret this result as normal/abnormal. Lab Interpretation (test code = 96215-8) Normal [facility] HospitalXR CHEST 1 SN3670-93-31 21:43:31HISTORY: Chest pain. TECHNIQUE: Portable AP view of the chest is obtained. FINDINGS: No acute pneumonia. No pneumothorax or pleural effusion orpulmonary congestion detected. Cardiac size is within upper normal limits. CONCLUSIONS: No signs of acute cardiopulmonary disease.[facility] SARS-COV-2 ANTIGEN (BINAX NOW)2023-03-23 21:13:00* Test Item Value Reference Range Interpretation Comme [facility] POCT SARS-COV-2 ANTIGEN (ailyn t code = 83312-3) Not Detected Not Detected On board controls acceptable with C Line (test code = 3574) Yes Lab Interpretation (test cod e = 86457-8) Normal [facility] Molecular Exq1894-31-69 20:20:38* Test Item Value Reference Range Interpretation Comme nts POCT Molecular FluA (test co de = 26592-0) Negative Negative POCT Molecular FluB (test co de = 57718-1) Negative Negative Lab Interpretation (test cod e = 50278-1) Normal [facility] MOLECULAR SJTLX8981-27-46 20:14:01* Test Item Value Reference Range Interpretation Comme [facility] POCT Molecular Strep (test c ode = 43138-7) Negative Negative Lab Interpretation (test cod e = 28258-8) Normal [facility] MOLECULAR GJP7100-72-89 23:19:16* Test Item Value Reference Range Interpretation Comme nts POCT Molecular FluA (test co de = 51021-5) Negative Negative POCT Molecular FluB (test co de = 44304-0) Negative Negative Lab Interpretation (test cod e = 32261-6) Normal [facility] MO[facility]CULAR IERJV4262-76-22 23:09:15* Test Item Value Reference Range Interpretation Comme nts POCT Molecular Strep (test c ode = 96242-5) Positive Negative A Lab Interpretation (test cod e = 61603-2) [facility] History and Physical Notes Date/Time Note Provider Source 2023-04-16 01:07:21 7/BkEAb9J9dj+I1cJcHc ND9D4y54gPk8DCmgHw1ZMA NlNmod8RID0YgX5YnuJ/kz6596-84-05H66:07:21F ormatting of this note is different from the original.Images from the original note were not included.WHITE RED CCU ADMIT H&PDate of Service: 4PCP: Yazan Morrell COMPLAINT: Afib w/ RVRHistory of Present IllnessOni Hayes is a 67 year old male with PMH of HLD presenting form OSH with afib in RVR.Pt reports cough and congestion for 2 weeks. He went to his PCP and received abx with no improvement. Associated symptoms are fatigue, dyspnea. His cough has progressed from productive to non productive. He denies CP, palpitations, dizziness, syncope, SAPP.Denies previous cardiac hx or irregular rhythm.At OSH, Afib w/ RVR to 149, given diltiazem 15 mg x1 with minimal response. Started on diltiazem gtt. Found to be Flu positive.Hgb 17.0AST 43CXR no consolidation, pneumothorax, pleural effusions, or pulmonary congestion.PAST MEDICAL HISTORYPast Medical History:Diagnosis DateHyperlipidemia LDL goal < 100 01/03/2016Past Surgical History:Procedure Laterality DatePHACOEMULSIFICATION OF CATARACT WITH INTRAOCULAR LENS IMPLANT Left 10/02/2020urgeon: Boris Maradiaga MD; [facility] [place] HistoryProblem Relation Age of OnsetDementia MotherCancer FatherasbestosisALLERGIESNo Known AllergiesMEDICATIONSNo current facility-administered medications on file prior to encounter.Current Outpatient Medications on File Prior to EncounterMedication Sig Dispense RefillcefUROXime 500 mg tablet Take 1 tablet by mouth in the morning and 1 tablet in the evening. 20 tablet 0erythromycin 5 mg/gram (0.5 %) ophthalmic ointment Place 0.5 Inches in left eye 4 (four) times daily. 3.5 g 0ATORVASTATIN 10 mg tablet TAKE 1 TABLET BY MOUTH EVERYDAY AT BEDTIME 90 tablet 3levalbuterol 45 mcg/actuation inhaler Inhale 1-2 Puffs every 6 (six) hours as needed for Wheezing or Bronchospasm. 15 g 0diclofenac 50 mg EC tablet Take 1 tablet by mouth 3 (three) times daily with meals. 90 tablet 1SOCIAL HISTORYSocial HistorySocioeconomic HistoryMarital status: MarriedTobacco UseSmoking status: FormerPacks/day: 1.00Years: 40.00Additional pack years: 0.00Total pack years: 40.00Types: CigarettesQuit date: 10/06/2021Years since quittin.5Smokeless tobacco: CurrentVaping UseVaping Use: Never usedSubstance and Sexual ActivityAlcohol use: YesComment: occasionallyDrug use: NoSocial History NarrativeTruck driverREVIEW OF SYSTEMSAs reported in HPIPHYSICAL EXAMINATIONVitals:04/15/23 2232 04/15/23 2317 04/16/23 0106 04/16/23 0400BP: 116/71 104/62 (!) 149/77 121/74Pulse: 66 63 66 64Resp: 23 23 16 16Temp: 36.7 ?C (98.1 ?F) 36.8 ?C (98.2 ?F)TempSrc:SpO2: 96% 95% 97% 96%Weight:Height:General: No acute distress, A&O z5WSTHK: Normocephalic, atraumatic, normal conjunctiva & lids, moist mucous membranesNeck: Supple, JVDLungs: b/l wheezingCardiovascular: Normal S1, S2, RRR,Abdomen: soft, non-tender, non-distended, + BSExtremities: no edema, 2+ peripheral pulses, warmIntegumentary: no rashes, warm, dryNeuro: normal gross functionLABS- ReviewedIMAGING- ReviewedEKG:ASSESSMENT/PLANRobert Abigail is a 67 year old male with PMH as listed above, admitted to the hospital with:New on set Afib w/ RVR, paroxysmalFlu AHx of tobacco useHx of meth and cocaine useHLD-Admit to [facility]-LSB-Lfvspjvbl-CBC, BMP, Mg, LFTs, PT/INR,-Keep K >4, Mg > 8-QOORD-hgiypbt 10 mg qhs-Xopenex TID-Robitussin r3wql-iqnri monitor-heparin gtt, AC on discharge-stop dilt gttCode Status: Addressed: Full Yadiel Jiménez, [facility]artment of Internal MedicineY-3, Tre TeamCURRENT MEDICATIONSScheduled meds:atorvastatin, 10 mg, QHSenoxaparin (LOVENOX) SC Syringe, 40 mg, DAILYlevalbuterol, 0.63 mg, TIDsennosides-docusate sodium, 1 tablet, DAILYIV meds:PRN meds:acetaminophen, 650 mg, L9PSOHfjkiukavdzmbnzyg-pabmhdgqtfg, 5 mL, W7EKMYAntwaosjgxwyxv signed by Abdullahi Gallardo MD at 04/16/2023 4:55 PM CSTAssociated attestation - Abdullahi Gallardo MD - 04/16/2023 4:55 PM CST I reviewed patient's chart, vitals, lab work, current medications and other diagnostic studies. I saw and examined the patient on 04/16/2023 and agree with the detailed note. I actively participated in the decision-making process.Dharmesh Neil ProfessorDivision of Eyvrbhodjq23298-5Ktpxsfl and physical wvvjXW0831101Lizq, Rizwan1.2.840.836129.1.13.104.2.7.2.673427 GnstVoqnddXC0324-13-97P29:55:13History and physical noteTXT1.2.840.551708.1.13.104.2.7.2.72154 9|[id number] for patient fjfp13052-2Lmsdhfg and physical noteLNNARRATIVEFormatted C-CDA narrative text[address] [id number] DE ANDANQGRLUGWBXGZSUJC9034-60-23G11:55:131.2.840 .725741.1.72.3.15|1.2.840.003719.1.13.104. 2.7.2.727879_[id number] [facility] Notes Date/Time Note Provider Source 2023-04-30 17:29:32 Br4AuE/cTAdUiGsS3FsFrdAN+DLE3LB4v7UIJ L0jaxfF8ipSmEdnXZurW384InWr9352-38-04 T17:29:32 Refill done according to Cardiology Medication Refill Guidelines. 51631-0Xsyodvymt encounter ZuxyFU0703-85-65L44:31:01Telephone encounter NoteTXT1.2.840.037435.1.13.104.2.7.2. 831852|[id number] for patient pial25588-7AkqcQPJJBODILDDIoywdkzxj C-CDA narrative text[address] [id number] VSQTOWDSXAJZABDGMJAFE1001-97-96P31:31 :011.2.840.937918.1.72.3.15|1.2.840.1 69341.1.13.104.2.7.2.727879_[id number] 9 [facility] 2023-04-20 10:38:15 JdW8hZ2bMg2cSyIF0/qc5IgXFdAvTrG2RNxo/ QVLcPPO2svLezwjU6Y4rbXP2m7o1185-77-75 T10:38:15 Images from the original note were not included.Talita Streeter MAto Oni HammertawnyaBL04/19/23 3:18 PMWe can give you a return to work note to go back tomorrow for light duty but you must be seen before we can give you a clearance to return to full duty please make sure and keep your appointment for 04/29/2023. Per Dr. Whaley can come by office and fruit picker the noteThanks and have good dayLast read by Oni Hayes at 3:19 PM on 04/19/2023. 02330-6Evgqpirif encounter IbpbXF8063-39-97Q03:38:20Telephone encounter NoteTXT1.2.840.980767.1.13.104.2.7.2. 312247|[id number] for patient aaer61153-5StodGFEORYZJCTUExcfunvqo C-CDA narrative text[address] HnunWpjnzusjeDypnbhjrlQOPX9393826154V TTGWJUXBNMZPSTPTYGLUG3907-43-38B41:38 :201.2.840.525583.1.72.3.15|1.2.840.1 26033.1.13.104.2.7.2.727879_[id number] 0 [facility] 2023-04-19 12:24:57 eo+7/56SnY8hsslUYbnhTSlxPp4RwAPUo+f40 pHOLjL11LNBWTpEvYNSq/nfcOkU8438-32-56 T12:24:57 nOi Hayes is a 67 year old malePt is returning a missed call, pt did get informed that pcp said ok that a note was going to be made, but he is wanting to speak w someone in order to get it today.Please adviseThank you 26040-3Jhabnunzh encounter TlxiBD9876-25-93F62:26:38Telephone encounter NoteTXT1.2.840.927449.1.13.104.2.7.2. 354982|[id number] for patient asjy30369-7OhptPSPSYFLRBZZIxrfymmmt C-CDA narrative mxuf295336147Gjvtz [address] Ee[id number] XQNUDJJKTZHHXZMJWSYMD5717-72-61A87:26 :381.2.840.278906.1.72.3.15|1.2.840.1 68408.1.13.104.2.7.2.727879_[id number] 2 [facility] 2023-04-19 12:23:26 20kZ3mei7EnOQHY221ptB9QDE1QxrOcAmj+XZ aFI8/g1yNMoN2bG3Szz9atEUxkM6638-43-80 T12:23:26 TRANSITIONAL CARE MANAGEMENT ASSESSMENTTaniya HayesXmfupn351808OKcwgws Burris is a 67 year old /White male was admitted on 04/15/[address] He was discharged on 04/17/23 with discharge disposition of HR- Routine Discharge.Admitting Physician: Summer Pabon Diagnosis: New on set Afib w/ RVR, paroxysmal 2/2 influenza ALinked EpisodesType: Episode: Status: Noted: Resolved: Last update: Updated by:TRANSITION OF CARE TCM Active 04/17/2023 04/19/2023 12:18 PM Nima Villalobos, RNComments:TCM Vjp-ohoa-cd-face outreach documentation:Discharge AssessmentChart Assessed: 04/19/23TCM Outreach Completed: 04/19/23Do you have a few minutes to speak with me about how you are doing at home?: Yes (Pt reports he is "just fine".)Discharge InstructionsDo you understand your at-home instructions?: Yes (No questions at this time.)MedicationsHave you filled your prescriptions and do you have them in your home? : YesDo you know how to take your medications?: Yes (No questions.)Can you provide me with the names or descriptions of any cqea-vnw-qyrxfic or supplements you are currently taking?: Patient declinedSuppliesDid you receive applicable home medical supplies/equipment?: N/AFollow Up AppointmentHas a follow up appointment been scheduled?: YesDo you have any questions about your follow up appointments?: NoAre you able to get to your appointment? Who will be taking you?: Yes (Pt has transportation.)Home Health AssistanceHas the home health nurse contacted you since you've been home?: N/ASurvey - RecognitionIs there anything you would like to share about your recent hospitalization, or anyone you would like to recognize?: NoDo you have any suggestions for improvement?: NoDo you have any other questions or concerns at this time?: Yes (Pt states he is trying to get a return to work note. Pt has already called the clinic, and per notes in Epic, a nurse has tried to call him back. CM transferred pt to the clinic to follow up.)Future Appointments:Future AppointmentsProvider Department Dept Phone04/29/2023 1:00 PM Yazan Hill [facility] [phone]/09/2023 2:30 PM Srinivasan Lopez [facility] [phone] COVID 19 test results were negative. You may return to work or school when you are feeling better and have not had a fever for 24 hours or more without taking fever reducing medications, such as acetaminophen or ibuprofen. 33099-7Fupawfdba encounter MuxgEG8935-58-27F47:24:17Telephone encounter NoteTXT1.2.840.302115.1.13.104.2.7.2. 675172|[id number] for patient obia29757-4HkejTGUXAXAEENPNygkrayxb C-CDA narrative [id number] Claudia Villalobos RNUT[id number] UUVXTAAMYQIFMIDDADLDS0014-42-27V61:24 :171.2.840.428840.1.72.3.15|1.2.840.1 75450.1.13.104.2.7.2.727879_[id number] 3 Nima Claudia Villalobos RN [facility] 2023-04-19 08:54:30 X4UK5L5Dt/xj/bQRyCwZDz57co8q4dmGqp+it BTq08LziBFt18RXgx0QBzqpGzC00482-86-28 T08:54:30 Attempted to contact patient. No answer. Left message to call back.Tammy Sharif LVN 04/19/2023 8:54 AM 30817-6Pxalmfbvs encounter YinnSG1308-50-48C65:54:41Telephone encounter NoteTXT1.2.840.436388.1.13.104.2.7.2. 369232|[id number] for patient vyah35923-5CvjmJVPOCAZMCSYYexnzitnt C-CDA narrative text[id number] DDRJIEAPKCJHSQWBBSTGS0761-78-45I04:54 :411.2.840.928202.1.72.3.15|1.2.840.1 26920.1.13.104.2.7.2.727879_[id number] 2 [facility] 2023-04-19 08:41:43 6nWR5oSEce/vUYoz6FBGSNLPEQryh04X/7g5x jc0UDF640ddIpJ9XaR+Cw2nY3jK6005-59-46 T08:41:43 Oni Hayes is a 67 year old male is requesting a return back to work form for light duty. Patient needs form today. Please call patient when form is ready. [phone] (home) 27027-3Qxadarmjk encounter ZxlvFM0443-79-61Y92:42:51Telephone encounter NoteTXT1.2.840.965015.1.13.104.2.7.2. 079161|[id number] for patient quvk33227-8IojlAKKKEVHHPRZGyetzomep C-CDA narrative [id number] D [address] Iq[id number] ZFVNYKKBDOMWPLZPYTNWM5992-30-65C07:42 :511.2.840.597138.1.72.3.15|1.2.840.1 43507.1.13.104.2.7.2.727879_[id number] 9 Simone Whiteside [facility] 2023-04-17 14:41:48 mzCiv7eexvcK27k9OfHwn1uYxH5/5jgRo6AbI rzQhDko/Le1JymIZA9qmM+zJAcF6294-30-27 T14:41:48 Problem: Falls, Risk ofGoal: Absence of falls04/17/2023 1441 by Mirela Forrest RNOutcome: Resolved04/17/2023 1018 by Mirela Forrest RNOutcome: Progressing as expectedProblem: Discharge PlanningGoal: Adequate for discharge04/17/2023 1441 by Mirela Forrest RNOutcome: Resolved04/17/2023 1018 by Mirela Forrest RNOutcome: Progressing as expectedGoal: Effective communication04/17/2023 1441 by Mirela Forrest RNOutcome: Resolved04/17/2023 1018 by Mirela Forrest RNOutcome: Progressing as expectedProblem: Infection RiskGoal: Absence of infection04/17/2023 1441 by Mirela Forrest RNOutcome: Resolved04/17/2023 1018 by Mirela Forrest RNOutcome: Progressing as expectedProblem: Bleeding, Risk ofGoal: Absence of impaired coagulation signs and symptoms04/17/2023 1441 by Mirela Forrest RNOutcome: Resolved04/17/2023 1018 by Mirela Forrest RNOutcome: Progressing as expectedGoal: Absence of active bleeding04/17/2023 1441 by Mirela Forrest RNOutcome: Resolved04/17/2023 1018 by Mirela Forrest RNOutcome: Progressing as expectedProblem: PainGoal: Control of pain at or below patient's documented comfort goal04/17/2023 1441 by Mirela Forrest RNOutcome: Resolved04/17/2023 1018 by Mirela Forrest RNOutcome: Progressing as expectedGoal: Reduction in pain sensation04/17/2023 1441 by Mirela Forrest RNOutcome: Resolved04/17/2023 1018 by Mirela Forrest RNOutcome: Progressing as expected 64590-9Yczj of care ltpwOQ9178-86-19E11:41:50Plan of care noteTXT1.2.840.997570.1.13.104.2.7.2. 261944|[id number] for patient gpgw09859-8ZepfUCSLROSCDWBQnkztelna C-CDA narrative [id number] Masters RNUT[address] KyuiQjobjmjlqNkltrtpgmIPGN6328601138Q PSJKZINROFQXHAEWHXIVT9930-31-16L12:41 :501.2.840.525285.1.72.3.15|1.2.840.1 35313.1.13.104.2.7.2.727879_[id number] 1 Mirela oFrrest RN [facility] 2023-04-17 10:19:03 +GsdZVuadrV/fzbz/fqz2kTXS2eNauLmdOqRI Q1cGW7BUEchlC5S3cy8gNfxwbC84608-55-58 T10:19:03 Problem: Falls, Risk ofGoal: Absence of fallsOutcome: Progressing as expectedProblem: Discharge PlanningGoal: Adequate for dischargeOutcome: Progressing as expectedGoal: Effective communicationOutcome: Progressing as expectedProblem: Infection RiskGoal: Absence of infectionOutcome: Progressing as expectedProblem: Bleeding, Risk ofGoal: Absence of impaired coagulation signs and symptomsOutcome: Progressing as expectedGoal: Absence of active bleedingOutcome: Progressing as expectedProblem: PainGoal: Control of pain at or below patient's documented comfort goalOutcome: Progressing as expectedGoal: Reduction in pain sensationOutcome: Progressing as expected 15682-9Ojor of care ovqfCU7676-18-90V86:19:06Plan of care noteTXT1.2.840.941186.1.13.104.2.7.2. 776083|[id number] for patient vzji93371-2HaaiENQGVFUXFIKOvveveocq C-CDA narrative text[address] StreetZoioF[id number] KGVNUXSPBGHBXEYBOHFTC9374-10-47C36:19 :061.2.840.375984.1.72.3.15|1.2.840.1 42700.1.13.104.2.7.2.727879_[id number] 2 [facility] 2023-04-17 05:25:10 O8o+qWX5c+ddjCCKHSoX4ZOvaZCyg6ndYotJl FHmOuoeGrXzI2twkx9CjcxqKNwv0208-00-27 T05:25:10 Problem: Falls, Risk ofGoal: Absence of fallsOutcome: Progressing as expectedProblem: Discharge PlanningGoal: Adequate for dischargeOutcome: Progressing as expectedGoal: Effective communicationOutcome: Progressing as expectedProblem: Infection RiskGoal: Absence of infectionOutcome: Progressing as expectedProblem: Bleeding, Risk ofGoal: Absence of impaired coagulation signs and symptomsOutcome: Progressing as expectedGoal: Absence of active bleedingOutcome: Progressing as expected 03040-4Mjyi of care kzgzQG0015-03-27U07:25:13Plan of care noteTXT1.2.840.307914.1.13.104.2.7.2. 404142|[id number] for patient ibxn07106-4GltzNLLWNRWMUJOTadhdqxhy C-CDA narrative nhdl673138392Dbmukf R Beard Rn RN[address] StreetVtn[id number] YCVLEUPCTGKZIPLOOTSPN3671-18-62I78:25 :131.2.840.430036.1.72.3.15|1.2.840.1 46771.1.13.104.2.7.2.727879_[id number] 9 Shae Tinsley Rn RN [facility] 2023-04-16 18:39:07 b6q5yr+SGZiuVtMkf6g+PjBETHfH7ZXCdMYpJ phwGkiG1z+uzP9l3dCYs1pRA7LV3437-73-26 T18:39:07 1656 Patient converted back to SR high 50s per telemetry tech 93915-9Xvrwo DaubKA3526-21-60I92:39:55Nurse NoteTXT1.2.840.053134.1.13.104.2.7.2. 406066|[id number] for patient mstq60188-4TnhiSLDOYBZWVEOVunkfuheu C-CDA narrative jmcy081687012Gvaijr Garza RN[id number] RLHEZPKZPJDKWNQFIOVAD0281-21-83H35:39 :551.2.840.521330.1.72.3.15|1.2840.1 47793.1.13.104.2.7.2.727879_[id number] 1 Rena Pena [facility] 2023-04-16 16:51:58 JKEj8qhZMM4tADXG3O+flP0m04JeXatfER3Ts Zz+DfgLgEhArH6Vt25/1LZ8dNSV4380-40-57 T16:51:58 Problem: Falls, Risk ofGoal: Absence of fallsOutcome: Progressing as expectedProblem: Discharge PlanningGoal: Adequate for dischargeOutcome: Progressing as expectedGoal: Effective communicationOutcome: Progressing as expectedProblem: Infection RiskGoal: Absence of infectionOutcome: Progressing as expectedProblem: Bleeding, Risk ofGoal: Absence of impaired coagulation signs and symptomsOutcome: Progressing as expectedGoal: Absence of active bleedingOutcome: Progressing as expected 88096-0Zndt of care bdbiVI3420-29-79Z74:52:00Plan of care noteTXT1.2.840.846632.1.13.104.2.7.2. 805359|[id number] for patient jhfo24195-6SokdNOUOCSEGOELQdwfddufj C-CDA narrative text[id number] KMBYBMFVTEWLNXOYIWCRB1828-75-76E83:52 :001.2.840.654796.1.72.3.15|1.2.840.1 24156.1.13.104.2.7.2.727879_[id number] 6 [facility] 2023-04-16 15:21:43 Ggph2dvfEvJgZ0vMed82G0R9xUz5mxckJK2qr Px2N64f5oYb3+78jyOdqCOh+TaI9810-46-35 T15:21:43 Pts HR 120 -160s with some missed beats. White team paged. Awaiting for their return call. Pt resting in bed and denies SOB or chest pain.1535 Dr. Zuniga on unit. Metoprolol order modified. Notified him that his was at bedside and would like to speak with MD. He stated he would come back to speak with them. 73603-1Xfzxr LwouYR7034-81-56L95:38:52Nurse NoteTXT1.2.840.261452.1.13.104.2.7.2. 605078|[id number] for patient fjih53962-3XakfBIPAFILTATYXhwfwpnkl C-CDA narrative textUT[address] IvvgQpefhjqpzYwmdjhbswNZMY4155791953J ISKUXPAJHDENYQMRKHUDX3285-30-23O54:38 :521.2.840.671673.1.72.3.15|1.2.840.1 99538.1.13.104.2.7.2.727879_[id number] 2 [facility] 2023-04-16 11:58:52 zl6dfzaytr6cz47nG45VOkGbOCH+bHyOFAll8 5q/oBHgC18d/fV4GJcVpqQjVf+O8220-85-72 T11:58:52 pathology technician notified this RN that pt's HR continues to fluctuate from high 120s to mid 140s. Dr. Zuniga with white team notified that PO metoprolol order has not been verified by pharmacy and if they would like to give IV metoprolol. Awaiting for new orders from White Team. 47591-7Kgmuz HbdaNY5828-64-28K99:02:33Nurse NoteTXT1.2.840.314526.1.13.104.2.7.2. 751483|[id number] for patient awqu75013-5GmxtZEUVUFHHWAZGaarrzmcf C-CDA narrative [id number] YBDADNOQHKJZTGWJDMEFJ7349-68-76T35:02 :331.2.840.466313.1.72.3.15|1.2.840.1 91658.1.13.104.2.7.2.727879_[id number] 7 [facility] 2023-04-16 11:20:07 TArD7wRYraB8sM42C75lsxnSCHPBd6kfHmuHL 5nm5cVtAhe5YW/NvozraIMFQsgt6992-00-49 T11:20:07 Pt reports coughing and then breaking out in a cold sweat. During this time telemetry call at stated he had converted over to Afib at 11:11am. Current HR 120s-140sPO metoprolol given at 11:45je6020 White team aware. No new orders given at this time. 10243-5Mhxcs YwgvAR0979-58-80Z49:38:06Nurse NoteTXT1.2.840.365629.1.13.104.2.7.2. 437644|[id number] for patient bgab90383-2SubsEEPCMXZYMHDJpxkmslqs C-CDA narrative textUT[address] [id number] FQWDANJUQBGNWLGSITHPF2187-74-67P02:38 :061.2.840.155684.1.72.3.15|1.2.840.1 09958.1.13.104.2.7.2.727879_[id number] 2 [facility] 2023-04-15 23:27:46 uRyoLeOtw8EAHKVw2H374Fkhs4M8eCKIOfFXX GewpnpXhjyeW4E3Bv3cbyXoNuWf1278-32-71 T23:27:46 Nurse ReportReport given to Cristina OSMAN at [facility] 9[facility]. Chief complaint, assessment findings, infusion verify and orders reviewed. Plan of care [place] [address]-3Neiqydxyc department ZiriKM2410-74-26V17:28:07[facility] NoteTXT1.2.840.758767.1.13.104.2.7.2. 658643|[id number] for patient jtgs66738-0AwvaMQUCYSTQGCMJuonqyieh C-CDA narrative pdfd618629951GndcgShagufta Bolanos RN[id number] ROEYMZDPMAORWOAGDGTDV7091-91-35D40:28 :071.2.840.654126.1.72.3.15|1.2.840.1 94504.1.13.104.2.7.2.727879_[id number] 4 Shagufta Bolanos RN [facility] 2023-04-15 15:00:25 e3pG9qdLEWGz+gFLLvgeO3/PqGU0cLYUdvvXz 7Jq2kJJVpq+Dy+5dUxSvXPYlXvy9921-06-19 T15:00:25 Pt arrived via private car with c/o cough, congestion and headache x2 weeks. 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 17462-3Ohyheqvuj department Triage eotqPI6181-20-45H43:03:56[facility] Triage noteTXT1.2.840.802741.1.13.104.2.7.2. 648651|[id number] for patient wyrg70597-4Ozsyagnpa department NoteLNNARRATIVEFormatted C-CDA narrative [id number] L Barker RN[address] YnthJussafpyyOoyklzztyVQTL9946808519K YTPLTCHUEQCMWWLCXMUVM9712-25-67B53:03 :561.2.840.457641.1.72.3.15|1.2.840.1 70786.1.13.104.2.7.2.727879_[id number] 4 Zenobia Roche RN [facility] 2023-04-15 14:54:00 /KdMahu/rk3WmCJlJ4yBdoq/Fp0oVqD36r/bz KeuWjYjP3GlZ02JRqW8IC3Qm4Ju3022-83-60 T14:54:00Associated Order(s): EKG-12 Lead ROUTINE ONCEPre-Procedure Diagnose(s): Atrial fibrillation with RVRPost-Procedure Diagnose(s): Atrial fibrillation with RVR [facility] Emergency Department NotePatient Name: Oni Hodge of : 1955 67 year old maleTreatment Room: TX4/OX9Hlpzljv Record Number: [id number] Care Physician: Yazan HillPatient Escorted by: Self [9]Mode of Arrival: Personal means [1]EMS Treatment Prior to ED Arrival:Travel and Exposure Screening:SymptomsDoes patient have any of these symptoms?: (not recorded)Exposure ScreeningHas patient had contact with someone with a communicable disease in the last month?: (not recorded)Diseases exposed to:: (not recorded)Is Patient ?: (not recorded)Exposure Date: (not recorded)Chief Complaint:Chief ComplaintPatient presents withViral SyndromeTACHYCARDIAHistory of Present Illness:The patient presents from home for evaluation for cough, congestion and not feeling well for the past 2 weeks. He reports he has been seen by his PCP and is currently on antibiotics but is not getting any better. He is a former smoker. No sick contacts. No history of diabetes or high blood pressure.Here for evaluation.Past Medical History/Immunizations:Past Medical History:Diagnosis DateHyperlipidemia LDL goal < 100 01/03/2016Tetanus received in last 5 years: UnknownChildhood immunizations: Pm-jj-znrvGlruhhvqw:No Known AllergiesPast Social History:Tobacco UseFormer; Cigarettes: Quit 10/06/2021; 1 pack/day for 40.00 yearsSmokeless Tobacco: Current user of smokeless tobacco.Vaping UseNever usedAlcohol UseYes.Comments: occasionallyDrug UseNo.Past Surgical History:Past Surgical History:Procedure Laterality DatePHACOEMULSIFICATION OF CATARACT WITH INTRAOCULAR LENS IMPLANT Left 10/02/2020urgeon: Boris Maradiaga MD; [facility] [place]Review of Systems:Review of SystemsConstitutional: Positive for chills. Negative for fever.HENT: Positive for congestion.Respiratory: Positive for cough.Cardiovascular: Negative for chest pain.Gastrointestinal: Negative for abdominal pain and vomiting.Genitourinary: Negative for dysuria.Musculoskeletal: Positive for myalgias. Negative for neck pain and neck stiffness.Skin: Negative for wound.Neurological: Negative for dizziness.Psychiatric/Behavioral: Negative for agitation.Endocrine: Negative for goiter.Physical Exam:ED Triage VitalsWeight 04/15/23 1502 71.7 kg (158 lb)Actual or estimated 04/15/23 1502 Estimated by patient/family reportHeight 04/15/23 1502 1.676 m (5' 6")BP 04/15/23 1502 105/89Pulse 04/15/23 1502 76Resp 04/15/23 1503 18Temp 04/15/23 1502 36.8 ?C (98.2 ?F)Temp source 04/15/23 1502 OralSpO2 04/15/23 1502 98 %Measured on 04/15/23 1502 Room airPhysical ExamVitals and nursing note reviewed.Constitutional:Appearance: Normal appearance.HENT:Head: Normocephalic and atraumatic.Cardiovascular:Rate and Rhythm: Tachycardia present. Rhythm irregular.Pulses: Normal pulses.Pulmonary:Effort: Pulmonary effort is normal. No respiratory distress.Breath sounds: No stridor. No wheezing or rhonchi.Abdominal:General: There is no distension.Palpations: Abdomen is soft. There is no mass.Tenderness: There is no guarding.Hernia: No hernia is present.Musculoskeletal:General: Normal range of motion.Cervical back: Normal range of motion and neck supple.Skin:General: Skin is warm and dry.Neurological:General: No focal deficit present.Mental Status: He is alert and oriented to person, place, and time.Radiology:XR CHEST 1 VWFinal ResultHISTORY: Chest pain.TECHNIQUE: Portable AP view of the chest is obtained.FINDINGS: No acute pneumonia. No pneumothorax or pleural effusion orpulmonary congestion detected. Cardiac size is within upper normal limits.CONCLUSIONS: No signs of acute cardiopulmonary disease.Lab Results:Lab ResultsCBC WITH DIFF - AbnormalResult Value Ref RangeWBC 7.08 4.20 - 10.70 10*3/?LRBC 4.96 4.26 - 5.52 10*6/?LHGB 17.0 (*) 12.2 - 16.4 g/dLHCT 50.8 (*) 38.4 - 49.3 %MCV 102.4 (*) 81.7 - 95.6 fLMCH 34.3 (*) 26.1 - 32.7 pgMCHC 33.5 31.2 - 35.0 g/dLRDW-SD 47.5 38.5 - 51.6 fLRDW-CV 12.5 12.1 - 15.4 %PLT 182 150 - 328 10*3/?LMPV 10.8 9.8 - 13.0 fLNRBC/100 WBC 0.0 0.0 - 10.0 /100 WBCsNRBC x10^3 <0.01 10*3/?LGRAN MAT (NEUT) % 71.0 %IMM GRAN % 0.30 %LYMPH % 12.7 %MONO % 12.9 %EOS % 2.8 %BASO % 0.3 %GRAN MAT x10^3(ANC) 5.03 1.99 - 6.95 10*3/uLIMM GRAN x10^3 <0.03 0.00 - 0.06 10*3/uLLYMPH x10^3 0.90 (*) 1.09 - 3.23 10*3/uLMONO x10^3 0.91 0.36 - 1.02 10*3/uLEOS x10^3 0.20 0.06 - 0.53 10*3/uLBASO x10^3 <0.03 0.01 - 0.09 10*3/uLCOMP. METABOLIC PANEL (87575) - AbnormalNA 136 135 - 145 mmol/LK 3.9 3.5 - 5.0 mmol/LCL 103 98 - 108 mmol/LCO2 TOTAL 28 23 - 31 mmol/LAGAP 5 2 - 16BUN 17 7 - 23 mg/dLGLUCOSE 125 (*) 70 - 110 mg/dLCREATININE 1.08 0.60 - 1.25 mg/dLTOTAL BILI 0.4 0.1 - 1.1 mg/dLCALCIUM 9.1 8.6 - 10.6 mg/Marc PROTEIN 6.9 6.3 - 8.2 g/dLALBUMIN 3.8 3.5 - 5.0 g/dLALK PHOS 82 34 - 122 U/LALTv 48 5 - 50 U/LAST(SGOT) 43 (*) 13 - 40 U/LeGFR 74.3 mL/min/1.15f0W-FHICLOZX PRO-BNP - AbnormalNT-proBNP 480 <=125 pg/mLRAPID INFLUENZA A/B - AbnormalRapid Influenza A Positive (*) NegativeRapid Influenza B Negative NegativeTROPONIN I - NormalTROPONIN I 0.003 <=0.034 ng/mLLIPASE - NormalLIPASE 79 0 - 220 U/LMAGNESIUM - NormalMAGNESIUM 2.2 1.7 - 2.4 mg/dLTHYROID STIMULATING HORMONE - NormalTSH 2.31 0.45 - 4.70 mIU/LFREE T4 - NormalFREE T4 0.99 0.78 - 2.20 ng/dL:FREE T3 - NormalFREE T3 4.36 2.77 - 5.27 pg/mLCOVID-19 (ID NOW RAPID TESTING) - OarxmmUUPS-MzY-8 Rapid ID NOW Not Detected Not DetectedEKG:If EKG completed, see Procedure Note.Orders and Treatments:Orders Placed This EncounterProceduresXR CHEST 1 VWCBC WITH DIFFCOMP. METABOLIC PANEL (00993)TROPONIN ILIPASEN-TERMINAL PRO-BNPMagnesiumThyroid Stimulating HormoneFree T4FREE L4CGCKK-70 (ID NOW TESTING)RAPID INFLUENZA A/BLab Only COVID InterpretationOrders Placed This EncounterMedicationsdiltiazem (CARDIZEM IV) injection 15 mgdiltiazem (CARDIZEM IV) 125 mg in D5W infusionFirst Provider Eval:ED EventsDate/Time Event User Tinotgau07/04/24 1504 Medical Screening Begins JOANN HAMILTON DO --04/15/23 1504 First Provider Evaluation JOANN HAMILTON DO --ED COURSEDiagnosis/Impression as of 04/15/23 1843Atrial fibrillation with RVRInfluenza AProcedures:EKG-12 Lead ROUTINE ONCEDate/Time: 04/15/2023 4:56 PMPerformed by: Joann Hamilton DOAuthorized by: Joann Hamilton DOECG interpreted by ED Physician in the absence of a [place]: yesInterpretation:Interpretation: abnormalRate:ECG rate: 147ECG rate assessment: tachycardicRhythm:Rhythm: atrial fibrillationEctopy:Ectopy: noneQRS:QRS axis: NormalQRS intervals: NormalQRS conduction: normalST segments:ST segments: NormalQ waves:Abnormal Q-waves: not presentMDM:Medical Decision MakingThe patient presents from home for evaluation for cough, congestion as well as not feeling well for almost 2 weeks. He has been seen by his PCP and is currently taking antibiotics for bronchitis. He is a former smoker. No history of high blood pressure, diabetes or high cholesterol.The patient was tachycardic upon arrival in the ER.He is afebrile.His lungs are clear bilaterally.His heart is tacky and irregular.EKG shows atrial fibrillation with RVR.The patient is otherwise stable and was given IV bolus of Cardizem here in the ER which did improve his heart rate.Will monitor the patient on telemetry he was noted to have multiple long sinus pauses up to 5 and 6 seconds at a time.The patient states he feels fine and is asymptomatic during these pauses.Will check laboratory studies including a thyroid panel and electrolytes.Will continue to monitor the patient on telemetry.He will need admission for continued management as well as likely involvement of the electrophysiology team.The transfer center has been made aware of the patient's need for transfer.He is pending bed availability.1830 -the patient is doing well here in the ER.He denies palpitations and chest pain currently.His laboratory studies are unremarkable including normal thyroid function test.He is positive for influenza A and negative for COVID.His chest x-ray shows no acute cardiopulmonary issues.He has continued to have intermittent sinus pauses on telemetry however he has remained atrial fibrillation RVR.Will start a Cardizem drip and continue to monitor the patient here on telemetry.He is pending [facility] at the [facility].190 -the patient is signed out to Dr. Kruse pending bed availability and admission for continued management.Problems Addressed:Atrial fibrillation with RVR: acute illness or injuryInfluenza A: acute illness or injuryAmount and/or Complexity of Data ReviewedLabs: ordered. Decision-making details documented in ED Course.Radiology: ordered and independent interpretation performed. Decision-making details documented in ED Course.ECG/medicine tests: ordered and independent interpretation performed. Decision-making details documented in ED Course.RiskPrescription drug management.Decision regarding hospitalization.Flowsheet Documentation:Scoring Tools:No data recordedDisposition/Condition:ED DispositionNoneDischarge Medications:Patient's MedicationsSTART taking these medicationsNo medications on fileCONTINUE taking these medications which have NOT CHANGEDATORVASTATIN 10 MG TABLET TAKE 1 TABLET BY MOUTH EVERYDAY AT BEDTIMECEFUROXIME 500 MG TABLET Take 1 tablet by mouth in the morning and 1 tablet in the evening.DICLOFENAC 50 MG EC TABLET Take 1 tablet by mouth 3 (three) times daily with meals.ERYTHROMYCIN 5 MG/GRAM (0.5 %) OPHTHALMIC OINTMENT Place 0.5 Inches in left eye 4 (four) times daily.LEVALBUTEROL 45 MCG/ACTUATION INHALER Inhale 1-2 Puffs every 6 (six) hours as needed for Wheezing or Bronchospasm.START taking Modified Medications as PrescribedNo medications on fileSTOP taking these medicationsNo medications on fileFollow-up:Electronically signed by:Joann Hamilton DO04/15/23 1843 01872-1Tteeodkbj Emergency department XrvwKU2293-79-92E44:43:25[facility]first[facility] NoteTXT1.2.840.542456.1.13.104.2.7.2. 246315|[id number] for patient prxd05978-1Sdbszuvai department NoteLNNARRATIVEFormatted C-CDA narrative textUT[address] Qs[id number] JPKRQLGQFRVTSJLNHONAG5625-47-39R85:43 :251.2.840.605975.1.72.3.15|1.2.840.1 55275.1.13.104.2.7.2.727879_[id number] 7 [facility]
[2023-05-05 07:30] LABS: Hematocrit 44.3 % (39.6-49.0); Lymphocytes % 15.5 % (15.3-44.8); MCV 100.7 fL (80-100); MPV 9.1 fL (7.6-11.3); Platelets 184 thou/uL (152-406)
[2023-05-05 07:41] LABS: Protime INR 1.69
[2023-05-05 07:50] LABS: Albumin 2.8 g/dL (3.4-5.0); Bilirubin Direct 0.1 mg/dL (0-0.2); Bilirubin Indirect, Calculated 0.3 mg/dL (0.2-0.8); Bilirubin Total 0.4 mg/dL (0.2-1.0); Magnesium 2.2 mg/dL (1.6-2.4); Potassium 4.4 mEq/L (3.5-5.1); Protein, Total 6.1 g/dL (6.4-8.2); Troponin High Sensitivity 6.2 pg/mL (<58.9)
--- NOTE | 2023-05-05 08:13 | RAD REPORT ---
EXAM DESCRIPTION: CT - Head Brain Wo Cont - 05/05/2023 8:04 am CLINICAL HISTORY: Syncope COMPARISON: None TECHNIQUE: Computed axial tomography of the head was obtained. IV contrast was not requested. All CT scans are performed using dose optimization technique as appropriate and may include automated exposure control or mA/KV adjustment according to patient size. FINDINGS: An intracranial bleed is not seen The ventricles are normal in caliber No extra-axial fluid collection is noted. No significant hypodensity within the brain Fluid within the right maxillary and sphenoid sinus consistent with acute sinusitis IMPRESSION: No acute intracranial abnormality is seen Acute sinusitis If patient's symptoms persist MRI of the brain would be recommended
--- NOTE | 2023-05-05 08:31 | RAD REPORT ---
EXAM DESCRIPTION: [place] Single View05/05/2023 7:36 am CLINICAL HISTORY: Chest pain COMPARISON: none FINDINGS: The lungs appear clear of acute infiltrate. The heart is normal size IMPRESSION: No acute abnormalities displayed
--- NOTE | 2023-05-05 08:31 | RAD REPORT ---
EXAM DESCRIPTION: CT - Angio Aorta For Dissection - 05/05/2023 8:07 am CLINICAL HISTORY: . Chest and abd pain COMPARISON: None TECHNIQUE: Computed tomography angiography of the chest, abdomen pelvis were obtained. 100 cc Isovue 370 was administered intravenously. Coronal and sagittal reconstruction were performed. MIP 3D reconstruction was performed All CT scans are performed using dose optimization technique as appropriate and may include automated exposure control or mA/KV adjustment according to patient size. FINDINGS: An aortic dissection is not seen. 2.2 x 1 centimeter saccular aneurysm anterior aspect infrarenal abdominal aorta. Mild plaque thoracic and abdominal aorta. A moderate stenosis proximal celiac artery. SMA and BENY are patent A lung consolidation is not present. A pericardial effusion is not seen. A pleural effusion is not no hortensia. The liver,spleen, pancreas and kidneys demonstrate no significant abnormality. 2.5 left adrenal mass Hounsfield unit 60. It contains small calcifications. 1.5 centimeter right adrenal mass Hounsfield unit 30 Normal appendix. No evidence diverticulitis Small inguinal hernias contain fat IMPRESSION: Negative for an aortic dissection. 2.2 x 1 centimeters saccular aneurysm abdominal aorta. Follow-up imaging 1 year recommended Bilateral adrenal masses are nonspecific. Nonemergent MRI recommended
--- NOTE | 2023-05-05 09:14 | EDPHYS ---
Physician Documentation [facility] Name: Hayden Hayes Age: 67 yrs Sex: Male : 1955 Arrival Date: 05/05/2023 Time: 07:04 Bed 16 Private MD: ED Physician Niraj Gatica HPI: 05/05 09:07 This 67 yrs old Male presents to ER via EMS with complaints of got sweaty, betty clammy. 09:07 got sweaty, no pain , drinking coffee. Onset: The symptoms/episode began/occurred just betty prior to arrival. Severity of symptoms: At their worst the symptoms were mild just prior to arrival, in the emergency department the symptoms have improved markedly. The patient has not experienced similar symptoms in the past. Historical: - Allergies: 07:19 No Known Allergies; mb9 - Home Meds: 07:19 metoprolol tartrate 25 mg Oral tablet 2 times per day [Active]; Eliquis 5 mg oral mb9 tablet [Active]; - PMHx: 07:19 Atrial fibrillation; mb9 - PSHx: 07:19 None; mb9 - Immunization history:: Adult Immunizations up to date. - Social history:: Smoking status: Patient/guardian denies using tobacco. - Family history:: not pertinent. ROS: 09:07 Constitutional: Negative for fever, chills, and weight loss, Eyes: Negative for injury, betty pain, redness, and discharge, ENT: Negative for injury, pain, and discharge, Neck: Negative for injury, pain, and swelling, Cardiovascular: Negative for chest pain, palpitations, and edema, Respiratory: Negative for shortness of breath, cough, wheezing, and pleuritic chest pain, Abdomen/GI: Negative for abdominal pain, nausea, vomiting, diarrhea, and constipation, Back: Negative for injury and pain, : Negative for injury, bleeding, discharge, and swelling, MS/Extremity: Negative for injury and deformity, Skin: Negative for injury, rash, and discoloration, Neuro: Negative for headache, weakness, numbness, tingling, and seizure, Psych: Negative for depression, anxiety, suicide ideation, homicidal ideation, and hallucinations, Allergy/Immunology: Negative for hives, rash, and allergies, Endocrine: Negative for neck swelling, polydipsia, polyuria, polyphagia, and marked weight changes, Hematologic/Lymphatic: Negative for swollen nodes, abnormal bleeding, and unusual bruising, Exam: 09:07 Constitutional: This is a well developed, well nourished patient who is awake, alert, betty and in no acute distress. Head/Face: Normocephalic, atraumatic. Eyes: Pupils equal round and reactive to light, extra-ocular motions intact. Lids and lashes normal. Conjunctiva and sclera are non-icteric and not injected. Cornea within normal limits. Periorbital areas with no swelling, redness, or edema. ENT: Nares patent. No nasal discharge, no septal abnormalities noted. Tympanic membranes are normal and external auditory canals are clear. Oropharynx with no redness, swelling, or masses, exudates, or evidence of obstruction, uvula midline. Mucous membranes moist. Neck: Trachea midline, no thyromegaly or masses palpated, and no cervical lymphadenopathy. Supple, full range of motion without nuchal rigidity, or vertebral point tenderness. No Meningismus. Chest/axilla: Normal chest wall appearance and motion. Nontender with no deformity. No lesions are appreciated. Cardiovascular: Regular rate and rhythm with a normal S1 and S2. No gallops, murmurs, or rubs. Normal PMI, no JVD. No pulse deficits. Respiratory: Lungs have equal breath sounds bilaterally, clear to auscultation and percussion. No rales, rhonchi or wheezes noted. No increased work of breathing, no retractions or nasal flaring. Abdomen/GI: Soft, non-tender, with normal bowel sounds. No distension or tympany. No guarding or rebound. No evidence of tenderness throughout. Back: No spinal tenderness. No costovertebral tenderness. Full range of motion. Male : Normal genitalia with no discharge or lesions. Skin: Warm, dry with normal turgor. Normal color with no rashes, no lesions, and no evidence of cellulitis. MS/ Extremity: Pulses equal, no cyanosis. Neurovascular intact. Full, normal range of motion. Neuro: Awake and alert, GCS 15, oriented to person, place, time, and situation. Cranial nerves II-XII grossly intact. Motor strength 5/5 in all extremities. Sensory grossly intact. Cerebellar exam normal. Normal gait. Psych: Awake, alert, with orientation to person, place and time. Behavior, mood, and affect are within normal limits. 09:07 ECG was reviewed by the Attending Physician. Vital Signs: 07:14 BP 99 / 63; Pulse 44; Resp 18; Temp 98.2; Pulse Ox 100% ; Weight 72.57 kg; Height 5 ft. mb9 6 in. ; Pain 0/10; 08:01 BP 89 / 60; Pulse 45; Resp 18; Pulse Ox 98% on R/A; mb9 08:39 BP 96 / 79; Pulse 50; Resp 16; Pulse Ox 97% on R/A; mb9 09:40 BP 101 / 84; Pulse 48; Resp 16; Pulse Ox 98% on R/A; mb9 07:14 Body Mass Index 25.82 (72.57 kg, 167.64 cm) mb9 07:14 Pain Scale: Adult mb9 MDM: 07:15 Patient medically screened. [facility] 09:11 Differential Diagnosis altered mental status, sepsis. Data reviewed: vital signs, [facility] nurses notes, EMS record, lab test result(s), EKG, radiologic studies, CT scan, plain films. Consideration of Admission/Observation Escalation of care including admission/observation considered. I considered the following discharge prescriptions or medication management in the emergency department Medications were administered in the Emergency Department. See MAR. Independent interpretation of the following test(s) in the Emergency Department EKG: See my EKG interpretation above. Test considered but Not performed: MRI: no mri. Historians other than the Patient: patient well informed. Care significantly affected by the following chronic conditions: Hypertension, a fib. Counseling: I had a detailed discussion with the patient and/or guardian regarding the historical points, exam findings, and any diagnostic results supporting the discharge/admit diagnosis, lab results, radiology results, the need for outpatient follow up, for definitive care, a business consultant, a family practitioner. 05/05 07:19 Order name: Basic Metabolic Panel; Complete Time: 09:05/05 07:19 Order name: CBC with Diff 05/05 07:19 Order name: Troponin HS; Complete Time: :05/05 07:19 Order name: D-Dimer; Complete Time: 09:04 05/05 07:19 Order name: LFT's; Complete Time: 09:05/05 07:19 Order name: Magnesium; Complete Time: 09:04 05/05 07:19 Order name: NT PRO-BNP; Complete Time: 09:04 05/05 07:19 Order name: PT-INR; Complete Time: 09:04 05/05 07:23 Order name: Lipase; Complete Time: 09:04 05/05 09:09 Order name: Troponin HS 05/05 07:19 Order name: XRAY Chest (1 view); Complete Time: 09:04 05/05 07:42 Order name: CT Head Brain wo Cont; Complete Time: 09:04 05/05 07:42 Order name: CT Aorta for Dissection; Complete Time: 09:04 05/05 07:19 Order name: EKG; Complete Time: 07:19 05/05 09:09 Order name: EKG; Complete Time: 09:10 05/05 07:19 Order name: Cardiac monitoring; Complete Time: 07:21 05/05 07:19 Order name: EKG - Nurse/Tech; Complete Time: 07:21 05/05 07:19 Order name: IV Saline Lock; Complete Time: 07:21 05/05 07:19 Order name: Labs collected and sent; Complete Time: 07:21 05/05 07:19 Order name: O2 Per Protocol; Complete Time: 07:29 05/05 07:19 Order name: O2 Sat Monitoring; Complete Time: 07:29 05/05 09:24 Order name: Orthostatics; Complete Time: 09:37 betty EC:07 Rate is 43 beats/min. Rhythm is regular. QRS [place] is Normal. UT interval is normal. QRS betty interval is normal. QT interval is normal. No Q waves. T waves are Normal. No ST changes noted. Clinical impression: Sinus bradycardia and No evidence of ischemia. Interpreted by me. Reviewed by me. Administered Medications: 07:31 Drug: Famotidine IVP 20 mg IVP once; dilute with 10 mL 0.9% NaCl; give over 2 minutes mb9 Route: IVP; Site: left antecubital; 10:06 Follow up: Response: No adverse reaction 9 07:31 Drug: NS 0.9% IV 1000 ml IV at 125 ml/hr continuous Route: IV; Rate: 125 ml/hr; Site: mb9 left antecubital; 10:06 Follow up: Response: No adverse reaction; IV Status: Completed infusion mb9 Disposition Summary: 05/05/23 09:13 Discharge Ordered Notes: Location: Home betty Problem: new betty Symptoms: have improved betty Condition: Stable betty Diagnosis - Bradycardia, unspecified betty - Syncope Near betty - Tobacco abuse counseling betty - Tobacco use betty Followup: betty - With: Private Physician - When: 2 - 3 days - Reason: Recheck today's complaints, Continuance of care, Re-evaluation by your physician Followup: betty - With: Pravin Resendez MD - When: 2 - 3 days - Reason: Recheck today's complaints, Re-evaluation by your physician Discharge Instructions: - Discharge Summary Sheet betty - Bradycardia, Adult betty - Near-Syncope betty - Steps to Quit Smoking betty - Health Risks of Smoking betty - Stroke Prevention betty - Weakness betty - Near-Syncope, [id number] ebtty - Health Maintenance, Male betty - Steps to Quit Smoking, [id number] betty - Weakness, [id number] [facility] Forms: - Medication Reconciliation Form [facility] - Thank You Letter [facility] - Antibiotic Education betty - Prescription Opioid Use betty - Patient Portal Instructions betty - Leadership Thank You Letter [facility] - Work release form mb9 Prescriptions: - Pepcid 20 mg Oral tablet - take 1 tablet ORAL route every 12 hours for 21 days; 42 tablet; Refills: 0, betty Product Selection Permitted Signatures: Dispatcher [employer] Niraj Aparicio MD MD cha Breneman, Romina Stephens, RN RN mb9
--- NOTE | 2023-05-05 09:14 | ER ---
Nurse's Notes [facility] Name: Hayden Hayes Age: 67 yrs Sex: Male : 1955 Arrival Date: 05/05/2023 Time: 07:04 Bed 16 Private MD: Diagnosis: Bradycardia, unspecified;Syncope Near;Tobacco abuse counseling;Tobacco use Presentation: 05/05 07:14 Chief complaint: EMS states: "toned out for being lightheaded, pale, and breaking out mb9 in cold sweats while sitting in chair drinking coffee this morning. Pt recently diagnosed with new onset AFib 2 weeks ago.". Coronavirus screen: Vaccine status: Patient reports receiving the 2nd dose of the covid vaccine. Ebola Screen: No symptoms or risks identified at this time. Initial Sepsis Screen: Does the patient meet any 2 criteria? No. Patient's initial sepsis screen is negative. Does the patient have a suspected source of infection? No. Patient's initial sepsis screen is negative. Risk Assessment: Do you want to hurt yourself or someone else? Patient reports no desire to harm self or others. Onset of symptoms was May 05, 2023. 07:14 Acuity: ABBY 2 mb9 07:14 Method Of Arrival: EMS: [facility] mb9 Triage Assessment: 07:20 General: Appears in no apparent distress. Behavior is calm, cooperative. Pain: Denies mb9 pain. EENT: No deficits noted. Neuro: Aguilar Agitation-Sedation Scale (RASS): 0 - Alert and Calm Level of Consciousness is awake, alert, obeys commands, Oriented to person, place, time, situation, Appropriate for age. Cardiovascular: Reports lightheadedness, Heart tones S1 S2 present Patient's skin is warm and dry. Respiratory: Airway is patent Respiratory effort is even, unlabored, Respiratory pattern is regular, symmetrical, Breath sounds are clear bilaterally. GI: Abdomen is flat, non-distended, Bowel sounds present X 4 quads. Abd is soft and non tender X 4 quads. : No signs and/or symptoms were reported regarding the genitourinary system. Derm: Skin is pink, warm \\T\\ dry. Musculoskeletal: Range of motion: intact in all extremities. Historical: - Allergies: 07:19 No Known Allergies; mb9 - Home Meds: 07:19 metoprolol tartrate 25 mg Oral tablet 2 times per day [Active]; Eliquis 5 mg oral mb9 tablet [Active]; - PMHx: 07:19 Atrial fibrillation; mb9 - PSHx: 07:19 None; mb9 - Immunization history:: Adult Immunizations up to date. - Social history:: Smoking status: Patient/guardian denies using tobacco. - Family history:: not pertinent. Screenin:[address] [facility] ED Fall Risk Assessment (Adult) History of falling in the last 3 months, mb9 including since admission No falls in past 3 months (0 pts) Confusion or Disorientation No (0 pts) Intoxicated or Sedated No (0 pts) Impaired Gait No (0 pts) Mobility Assist Device Used No (0 pt) Altered Elimination No (0 pt) Score/Fall Risk Level 0 - 2 = Low Risk Oriented to surroundings, Maintained a safe environment, Educated pt \\T\\ family on fall prevention, incl call for assistance when getting out of bed. Abuse screen: Denies threats or abuse. Nutritional screening: No deficits noted. Tuberculosis screening: No symptoms or risk factors identified. Assessment: 07:20 Reassessment: see triage assessment. mb9 09:00 Reassessment: No changes from previously documented assessment. Patient and/or family mb9 updated on plan of care and expected duration. Pain level reassessed. Patient is alert, oriented x 3, equal unlabored respirations, skin warm/dry/pink. 09:17 Reassessment: Discharge pending results of repeat troponin. mb9 Vital Signs: 07:14 BP 99 / 63; Pulse 44; Resp 18; Temp 98.2; Pulse Ox 100% ; Weight 72.57 kg; Height 5 ft. mb9 6 in. ; Pain 0/10; 08:01 BP 89 / 60; Pulse 45; Resp 18; Pulse Ox 98% on R/A; mb9 08:39 BP 96 / 79; Pulse 50; Resp 16; Pulse Ox 97% on R/A; mb9 09:40 BP 101 / 84; Pulse 48; Resp 16; Pulse Ox 98% on R/A; mb9 07:14 Body Mass Index 25.82 (72.57 kg, 167.64 cm) mb9 07:14 Pain Scale: Adult mb9 ED Course: 07:14 Patient arrived in ED. mb9 07:14 Romina Nuñez, RN is Primary Nurse. mb9 07:15 Niraj Gatica MD is Attending Physician. betty 07:17 Triage completed. mb9 07:20 Arm band placed on. mb9 07:21 No provider procedures requiring assistance completed. EKG done, by ED staff, reviewed mb9 by Niraj Gatica MD. Maintain EMS IV. Dressing intact. Good blood return noted. Site clean \\T\\ dry. Gauge \\T\\ site: 20 g left AC. 07:38 XRAY Chest (1 view) In Process Unspecified. EDMS 08:06 CT Head Brain wo Cont In Process Unspecified. EDMS 08:08 CT Aorta for Dissection In Process Unspecified. EDMS 08:40 Placed in gown. Bed in low position. Call light in reach. Side rails up X 1. Client mb9 placed on continuous cardiac and pulse oximetry monitoring. NIBP monitoring applied. diesel engine tester on. 09:13 Pravin Resendez MD is Referral Physician. betty 10:05 IV discontinued, intact, bleeding controlled, No redness/swelling at site. Pressure mb9 dressing applied. Administered Medications: 07:31 Drug: Famotidine IVP 20 mg IVP once; dilute with 10 mL 0.9% NaCl; give over 2 minutes mb9 Route: IVP; Site: left antecubital; 10:06 Follow up: Response: No adverse reaction mb9 07:31 Drug: NS 0.9% IV 1000 ml IV at 125 ml/hr continuous Route: IV; Rate: 125 ml/hr; Site: mb9 left antecubital; 10:06 Follow up: Response: No adverse reaction; IV Status: Completed infusion mb9 Medication: 08:40 VIS not applicable for this client. mb9 Outcome: 09:13 Discharge ordered by . [facility] 10:06 Discharged to home ambulatory, with family, mb9 10:06 Condition: stable 10:06 Discharge instructions given to patient, family, Instructed on discharge instructions, follow up and referral plans. Demonstrated understanding of instructions, follow-up care, medications, Prescriptions given X 1, 10:06 Patient left the ED. mb9 Signatures: Dispatcher [employer] EDNiraj Resendez MD MD cha Breneman, Mary Beth, RN RN mb9
[2023-05-05 10:13] LABS: Blood Morphology Comment NOTED (NOT SEEN); Macrocytosis 1+; Platelet Estimate ADEQ; White Blood Cell Scan OK (OK)
[2023-05-05 11:40] VITALS: TEMP 98.2; O2SAT 98
[2023-05-05 11:53] VITALS: BP 101/84
--- NOTE | 2023-05-06 16:30 | EKG ---
Test Date: 2023-05-05 Test Time: 07:23:22 Orientation And Mobility Instructor: SHERIF MEASUREMENT RESULTS: Intervals: Rate: 43 WI: 174 QRSD: 90 QT: 436 QTc: 368 [place]: P: 59 WI: 174 QRS: 65 T: 60 INTERPRETIVE STATEMENTS: Marked sinus bradycardia Possible Left atrial enlargement Abnormal ECG Compared to ECG 10/21/2005 10:01:29 Sinus rhythm no longer present Electronically Signed On 05-06-23 16:26:28 HELP DESK COORDINATOR by Pravin Resendez
== END ==
LOC: ER 07:04
DX: R00.1 Bradycardia, unspecified (principal); R55 Syncope and collapse; Z71.6 Tobacco abuse counseling; Z72.0 Tobacco use; I48.91 Unspecified atrial fibrillation
CPT/HCPCS: 96361; 93005; 85025; 80048; 36415; 83735; 85610; 85379; 80076; 84484 ×2; 83690; 83880; 70450; 71275; 74175; 71045; 96374; 99285; Q9967; J7030